=== PATIENT | female | born 1940 | race Caucasian/White ===

== ENCOUNTER → 2016-07-24 | Outpatient (CLI) | payer MEDICARE ==
[~2016-07-24] MED LIST: ALPR.25T PO; ALPR0.2550 PO; ASP325TEC PO; ASP81CT PO; ASP81TEC PO; ASPI1TAB PO; ATOR80TA PO; CIPR-226 PO; CLOP75TA PO; FENO135C PO; ISOS30TA3 PO; LACT1CAP57 PO; LIOT50TA3 PO; MAGN400C PO; MAGN400T6 PO; MTP25TSR PO; OMEG-9 PO; OMEG1CAP51 PO; ONDA8TAB9 PO; PNT40TEC PO; POTA10CA43 PO; POTA20TA15 PO; PRD20T PO; RNT150T PO; SMV20T PO; TRAM50TA2 PO; TRIA1TAB3 PO; TRIA1TAB5 PO; Ticagrelor PO
[2016-07-24 09:19] LABS: ALANINE AMINOTRANSFERASE 25 U/L (0-55); ALBUMIN 4.2 G/DL (3.2-4.5); ANION GAP 12 MMOL/L (5-14); ASPARTATE AMINO TRANSFERASE 25 U/L (5-34); BILIRUBIN,TOTAL 1.4 MG/DL (0.1-1.0); BLOOD UREA NITROGEN 17 MG/DL (7-18); BUN/CREATININE RATIO 20; CALCIUM 9.1 MG/DL (8.5-10.1); CARBON DIOXIDE 25 MMOL/L (21-32); CHLORIDE 105 MMOL/L (98-107); CHOLESTEROL 141 MG/DL (< 200); CREATININE SERUM 0.83 MG/DL (0.60-1.30); DIRECT LDL 72 MG/DL (1-129); GFR ESTIMATED > 60; GLUCOSE 123 MG/DL (70-105); POTASSIUM 3.9 MMOL/L (3.6-5.0); SODIUM 142 MMOL/L (135-145); TOTAL PROTEIN 6.6 G/DL (6.4-8.2); TRIGLYCERIDES 117 MG/DL (<150); VLDL CHOLESTEROL 23 MG/DL (5-40)
== END ==
LOC: LAB 08:40
PROVIDERS: ATTEND Physician Assistant
DX: I25.10 Atherosclerotic heart disease of native coronary artery without angina pectoris (principal); I10 Essential (primary) hypertension; E78.2 Mixed hyperlipidemia
CPT/HCPCS: 36415; 80053; 80061

== ENCOUNTER → 2016-08-01 | Outpatient (CLI) | payer MEDICARE, OTHER ==
[~2016-08-01] VITALS: Ht 165.1 cm; Wt 72.1 kg
[~2016-08-01] MED LIST changes: +REGADENOSON 0.4 MG/5 ML SYR (LEXISCAN) IV ONE
[2016-08-01] MEDS: CATHETER FLUSH 10 ML SYR IV PRN ×2 (11:38→12:56)
[2016-08-01 12:54] VITALS: BP 140/70
--- NOTE | 2016-08-02 08:08 | ECHOCARDIOGRAPHY REPORT ---
PROCEDURE PHYSICIAN: AR MAGALLANES DATE OF PROCEDURE: 08/01/2016 TWO DIMENSIONAL ECHOCARDIOGRAM REPORT PRIMARY PHYSICIAN: OTHER PHYSICIAN: REFERRING PHYSICIAN: Dr. Mancini ORDERING PHYSICIAN: INDICATION FOR THE PROCEDURE: 1. Chest pain. 2. Coronary artery disease. MEASUREMENTS DERIVED VALUES LV DIAMETER (LAX) NORMALS NORMALS Diastolic 4.8 (3.6-5.2) Eject. Fract. 60% (60%+/-6%) Systolic (2.3-3.9) Diastolic Vol. % Shortening (0.22-0.42) Systolic Vol. Aortic Root IVS THICKNESS Diastolic 1.1 (0.6-1.1) LVPW THICKNESS Diastolic 1.1 (0.6-1.1) LA DIAMETER Systolic 3.4 (2.1-3.7) FINDINGS: 1. Technical quality is good. 2. The left ventricle is normal in size with normal contractility. Systolic function appeared to be normal. Estimated ejection fraction 60%. 3. Left atrium is normal in size. No clot or thrombus were seen within the left atrium. 4. The right atrium and right ventricle are normal in size. No clot or thrombus were seen within the right side. 5. Mitral valve is normal in morphology with mild mitral regurgitation noted by color Doppler flow. No mitral valve prolapse. No mitral valve stenosis. 6. Aortic valve is trileaflet with normal opening and closing pattern. No significant aortic stenosis or regurgitation was seen. 7. Tricuspid valve is normal in morphology with mild tricuspid regurgitation noted by color Doppler flow. Doppler across tricuspid valve estimated pulmonary artery pressure of 29+ right atrial pressure. 8. Pulmonic valve is functioning normally. 9. No pericardial effusion. IN CONCLUSION: 1. Normal left ventricular size and systolic function. Estimated ejection fraction is 60%. 2. Mild mitral and tricuspid regurgitation. 3. Estimated pulmonary artery pressure of 35 mmHg. Job ID: [id number] Dictated Date: 08/01/2016 16:53:36 Lifeguard Date: 08/02/2016 08:05:01 / [place]
--- NOTE | 2016-08-02 10:07 | STRESS TEST ---
PROCEDURE PHYSICIAN: AR MAGALLANES DATE OF PROCEDURE: 08/01/2016 LEXISCAN MYOVIEW STRESS TEST REPORT: REFERRING PHYSICIAN: Dr. Mancini. INDICATION FOR THE PROCEDURE: 1. Chest pain. 2. Coronary artery disease. BASELINE HEART RATE: 68 BASELINE BLOOD PRESSURE: 176/88 BASELINE EKG: Sinus rhythm with no ischemic changes. IN SUMMARY: The patient was injected with 10.53 mCi of technetium 99 Myoview and the resting images were obtained. Then the patient received 0.4 mg of Lexiscan followed by 29.3 mCi of technetium 99 Myoview. Throughout the test, there were no EKG changes. The resting and stress images were reviewed and compared in the short axis, horizontal long axis, and vertical long axis views. Review of the images showed breast attenuation with typical female pattern. No significant ischemia or infarction were seen. SSS is 4, SDS 3, TID value 1.01. On the gated images, the left ventricle appeared to be normal size with normal contractility. Calculated ejection fraction 84%. IN CONCLUSION: 1. The patient tolerated Lexiscan well. 2. No ischemia or infarction on SPECT images. 3. Normal left ventricular size with normal contractility. Calculated ejection fraction 84%. Job ID: [id number] Dictated Date: 08/02/2016 07:13:10 Auditing Control Clerk Date: 08/02/2016 10:03:33 / [place]
== END ==
LOC: CARD 09:20
PROVIDERS: ATTEND Internal Medicine Cardiovascular Disease
DX: I25.10 Atherosclerotic heart disease of native coronary artery without angina pectoris (principal); R07.9 Chest pain, unspecified; I10 Essential (primary) hypertension; E78.2 Mixed hyperlipidemia; R55 Syncope and collapse; R09.89 Other specified symptoms and signs involving the circulatory and respiratory systems
CPT/HCPCS: 78452; 93017; 93306

== ENCOUNTER 2016-12-02 08:54 | Emergency (ER) | payer MEDICARE, OTHER ==
[~2016-12-02] VITALS: Ht 162.6 cm; Wt 63.5 kg
[~2016-12-02 08:54] MED LIST changes: -REGADENOSON 0.4 MG/5 ML SYR (LEXISCAN) IV ONE
[2016-12-02] MEDS ORDERED: DOXYCYCLINE 100 MG (VIBRAMYCIN) TABLET PO STA (09:14)
[2016-12-02] MEDS ORDERED: cefTRIAXone INJECTION 1,000 MG in NS (IVPB) 50 ML IV ONE (09:15)
[2016-12-02] MEDS ORDERED: LIDOCAINE 1% INJ 20 ML (XYLOCAINE) VIAL ONE (09:16)
--- NOTE | 2016-12-02 09:25 | ED General ---
General Chief Complaint: Head/Cervical Problems Stated Complaint: R SIDE NECK PAIN Nursing Triage Note: c/o possible insect bite to right clavicle. Also c/o redness to left foot. Scaling of left foot. Hx of suspected recurrent fungal infection to left foot. Nursing Sepsis Screen: No Definite Risk Source of Information: Patient Exam Limitations: No Limitations History of Present Illness Time Seen by Provider: 09:02 Initial Comments Here with report of pain to the area of the left shoulder between the shoulder and neck. She has a possible insect bite or sting at that area. She has tenderness when lifting up her shoulder to the area. Also notes that she has redness to the left foot that extends to the level just above the ankle. Denies fever or chills. Denies any inciting event to the area of the foot and states that it just was red and swollen. Timing/Duration: 12-24 Hours Severity: Moderate Associated Systoms: No Cough, No Fever/Chills, No Nausea/Vomiting, No Rash, No Shortness of Air, No Weakness Allergies and Home Medications Allergies Coded Allergies: Penicillins (Unverified Allergy, Unknown, 02/22/10) erythromycin base (Unverified Allergy, Unknown, 02/22/10) Home Medications Aspirin 81 Mg Tabec, 81 MG PO DAILY, (Reported) Atorvastatin Calcium 80 Mg Tablet, 80 MG PO HS, (Reported) Doxycycline Hyclate 100 Mg Tablet, 100 MG PO BID, #20 Ref 0 Prescribed by: STERLING MEJIAS on 12/02/16 0928 Isosorbide Mononitrate 30 Mg Tab.sr.24h, 30 MG PO DAILY, (Reported) Magnesium Oxide 400 Mg Capsule, 400 MG PO AM & NOON, (Reported) Metoprolol Succinate 25 Mg Tab.sr.24h, 25 MG PO DAILY, (Reported) Charlo-3 Fatty Acids/Fish Oil 1 Each Capsule, 1,000 MG PO TID, (Reported) Pantoprazole Sod 40 Mg Tab, 40 MG PO DAILY, (Reported) Prednisone 20 Mg Tab, 40 MG PO DAILY, #12 Prescribed by: STERLING MEJIAS on 04/20/16 1148 Tramadol HCl 50 Mg Tablet, 50 MG PO Q6H PRN for PAIN, #20 Prescribed by: STERLING MEJIAS on 04/20/16 1148 Constitutional: see HPI, No chills, No fever Respiratory: no symptoms reported Cardiovascular: no symptoms reported Gastrointestinal: no symptoms reported, No nausea, No vomiting Genitourinary: no symptoms reported Musculoskeletal: see HPI, No joint pain, muscle pain Skin: see HPI, change in color, lesions Psychiatric/Neurological: No Symptoms Reported Past [id number] Hx Patient Social History Alcohol Use: Denies Use Recreational Drug Use: No Recent Foreign Travel: No Contact w/Someone Who Travel: No Recent Infectious Disease Expo: No Recent Hopitalizations: No Immunizations Up To Date Tetanus Booster (TDap): More than 5yrs Surgeries HX Surgeries: Yes (HEART CATH) Surgeries: Eye Surgery Respiratory Hx Respiratory Disorders: No Cardiovascular Hx Cardiac Disorders: Yes (STENT) Cardiac Disorders: Heart Attack, Hypertension Neurological Hx Neurological Disorders: No Reproductive System Hx Reproductive Disorders: No Genitourinary Hx Genitourinary Disorders: No Gastrointestinal Hx Gastrointestinal Disorders: No Musculoskeletal Hx Musculoskeletal Disorders: No Endocrine Hx Endocrine Disorders: No HEENT HX ENT Disorders: Yes HEENT Disorders: Cataract Loss of Vision: Denies Cancer Hx Cancer: No Psychosocial Hx Psychiatric Problems: Yes Behavioral Health Disorders: Anxiety Integumentary HX Skin/Integumentary Disorder: No Blood Transfusions Hx Blood Disorders: No Reviewed Nursing Assessment Reviewed/Agree w Nursing PMH: Yes Family Medical History Significant Family History: Heart Disease Family Medial History: AIDS Arthritis 19 MOTHER, Onset:50's - 60 Deafness or hearing loss 19 FATHER, Onset:60 years & older 19 MOTHER, Onset:60 years & older Myocardial infarction 19 FATHER, Onset:60 years & older Visual disorder 19 FATHER, Onset:50's - 60 19 MOTHER, Onset:50's - 60 No Family History of: Abdominal aortic aneurysm Frank's disease Alcoholism Alzheimer's disease Aphasia Asthma Cancer of mouth Cardiovascular disease Cataracts Colon cancer Completed stroke Congenital disease Congenital heart disease Coronary thrombosis Cystic fibrosis Dementia Diabetes mellitus Drug abuse Dysphasia Fibrocystic disease of breast Gastroenteritis Glaucoma Headache disorder Hypercholesterolemia Hypertension Infertility Kidney disease Neoplasm Osteoporosis Parkinson's disease Prostate cancer Psychosocial problem Respiratory disorder Seizure disorder Severe allergy Thyroid disease Tuberculosis Physical Exam Vital Signs Vital Sign - Last 12Hours 12/02/16 09:08 Temp 98.5 Pulse 82 Resp 16 B/P (MAP) 136/70 Pulse Ox 98 Capillary Refill : Less Than 3 Seconds General Appearance: No Apparent Distress, WD/WN HEENT: PERRL/EOMI, Pharynx Normal Neck: Non Tender, Supple Respiratory: Lungs Clear, Normal Breath Sounds Cardiovascular: Regular Rate, Rhythm, No Murmur Gastrointestinal: Non Tender, Soft Back: Normal Inspection, No CVA Tenderness, No Vertebral Tenderness Extremity: Normal Range of Motion, No Calf Tenderness Neurologic/Psychiatric: Alert, Oriented x3 Skin: Warm/Dry, Other (right shoulder area with 3 x 3 cm area of redness and induration with a central core with she has the appearance of an early blister/ ulceration. Left foot with redness from toes to area above ankle. No obvious wounds but does have athlete's foot.) Progress/Results/Core Measures Results/Orders My Orders Orders - STERLING MEJIAS MD Ceftriaxone Injection (Rocephin Injectio (12/02/16 09:15) Doxycycline Hyclate Tablet (Vibramycin T (12/02/16 09:14) Lidocaine 1% Injection (Xylocaine 1% Inj (12/02/16 09:16) Ceftriaxone Injection (Rocephin Injectio (12/02/16 09:30) Lidocaine 1% Injection (Xylocaine 1% Inj (12/02/16 09:30) Medications Given in ED Current Medications Medications Dose Ordered Sig/Artur Route Start Time Stop Time Status Last Admin Dose Admin Ceftriaxone Sodium 1,000 mg ONCE ONCE IM 12/02/16 09:30 12/02/16 09:31 DC 12/02/16 09:32 1,000 MG Lidocaine HCl 20 ml STK-MED ONCE .ROUTE 12/02/16 09:16 12/02/16 09:22 DC 12/02/16 09:29 20 ML Vital Signs/I&O Vital Sign - Last 12Hours 12/02/16 12/02/16 12/02/16 12/02/16 09:08 09:32 09:32 09:45 Temp 98.5 98.5 98.5 96.4 Pulse 82 Resp 16 B/P (MAP) 136/70 Pulse Ox 98 Blood Pressure Mean: 92 Progress Note : Progress Note Seen and evaluated. Cellulitis left foot noted and probable spider bite to the right shoulder. Due to cellulitis that is moderate to the left foot, Rocephin 1 g IM initiated and we will continue doxycycline outpatient. First dose of that here as well. Findings and concerns discussed with the patient who verbalize understanding Patient does have athlete's foot infection to the left foot. I did discuss with her [id number] options for treatment. Discharged home with return precautions. Patient verbalize understanding instructions and agreement with plan. No adverse reactions to medicines given. Departure Impression Impression: Primary Impression: Cellulitis of left foot Additional Impression: Spider bite wound Qualified Codes: T63.304A - Toxic effect of unspecified spider venom, undetermined, initial encounter Disposition: 01 HOME, SELF-CARE Condition: Improved Departure-Patient Inst. Decision time for Depature: 09:25 Referrals: JENNIFER RUIZ MD (PCP/Family) Primary Care Physician Patient Instructions: Cellulitis (Skin Infection), Adult (DC), Spider Bites Add. Discharge Instructions: All discharge instructions reviewed with patient and/or family. Voiced understanding. Take medications as directed. You may use [id number] cream for the athlete's foot infection to the left foot. Apply per package directions. You may take Tylenol or ibuprofen as needed for fever or pain per package directions. Return for worse pain, fever, vomiting, increasing redness to the area around wounds or other concerns as needed. Scripts Doxycycline Hyclate (Doxycycline Hyclate) 100 Mg Tablet 100 MG PO BID, #20 TAB 0 Refills Prov: STERLING MEJIAS MD 12/02/16 STERLING MEJIAS MD Dec 02, 2016 09:25
[2016-12-02] MEDS ORDERED: DOXY100T2 PO (09:28)
[2016-12-02] MEDS ORDERED: LIDOCAINE 1% INJ 20 ML (XYLOCAINE) VIAL INJ ONE (09:30)
[2016-12-02] MEDS ORDERED: cefTRIAXone 1 GM (ROCEPHIN) VIAL IM ONE (09:30)
[2016-12-02 10:20] VITALS: BP 132/70
--- OUTSIDE RECORDS SUMMARY | 2016-12-04 11:06 | XMS REPORT | Continuity of Care Document ---
Author Author [facility] Organization [facility] Address Unknown Phone Unavailable Allergies Active Description Code Type Severity Reaction Onset Reported/Identified Relationship to Patient Clinical Status Yes erythromycin base [id number] Drug Allergy Unknown N/A 02/22/2010 Yes Penicillins [id number] Drug Allergy Unknown N/A 02/22/2010 Medications Problems Date Dx Coded Attending Type Code Diagnosis Diagnosed By 02/23/2010 Ot 272.4 02/23/2010 Ot 401.9 02/23/2010 Ot 414.01 02/23/2010 Ot V17.49 03/25/2010 Ot 272.4 03/25/2010 Ot 276.8 03/25/2010 Ot 401.9 03/25/2010 Ot 414.01 03/25/2010 Ot 791.9 03/25/2010 Ot V45.82 03/25/2010 Ot V58.63 03/25/2010 Ot V58.66 03/25/2010 Ot V58.69 02/06/2011 Ot 272.4 HYPERLIPIDEMIA NEC/NOS 02/06/2011 Ot 275.2 DIS MAGNESIUM METABOLISM 02/06/2011 Ot 276.8 HYPOPOTASSEMIA 02/06/2011 Ot 401.9 HYPERTENSION NOS 02/06/2011 Ot 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 [place] CORON 02/06/2011 Ot 530.81 ESOPHAGEAL REFLUX 02/06/2011 Ot 786.50 CHEST PAIN NOS 02/06/2011 Ot V45.82 PERCUTANEOUS TRANSLUM CORON ANGIOPLASTY 02/06/2011 Ot V58.63 LONG-TERM(CURRENT)USE OF ANTIPLATELET/AN 02/06/2011 Ot V58.66 LONG-TERM (CURRENT) USE OF ASPIRIN 02/06/2011 Ot V58.69 OTH MED,LT,CURRENT USE 04/14/2012 Ot 272.4 HYPERLIPIDEMIA NEC/NOS 04/14/2012 Ot 276.52 HYPOVOLEMIA 04/14/2012 Ot 300.00 ANXIETY STATE NOS 04/14/2012 Ot 397.0 TRICUSPID VALVE DISEASE 04/14/2012 Ot 401.9 HYPERTENSION NOS 04/14/2012 Ot 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 [place] CORON 04/14/2012 Ot 424.0 MITRAL VALVE DISORDER 04/14/2012 Ot 530.81 ESOPHAGEAL REFLUX 04/14/2012 Ot 780.2 SYNCOPE AND COLLAPSE 04/14/2012 Ot 786.50 CHEST PAIN NOS 04/14/2012 Ot V45.82 PERCUTANEOUS TRANSLUM CORON ANGIOPLASTY 04/14/2012 Ot V58.63 LONG-TERM(CURRENT)USE OF ANTIPLATELET/AN 04/14/2012 Ot V58.66 LONG-TERM (CURRENT) USE OF ASPIRIN 04/14/2012 Ot V58.69 OTH MED,LT,CURRENT USE 02/04/2013 AR MAGALLANES MD Ot 272.4 HYPERLIPIDEMIA NEC/NOS 02/04/2013 AR MAGALLANES MD Ot 300.00 ANXIETY STATE NOS 02/04/2013 AR MAGALLANES MD Ot 401.9 HYPERTENSION NOS 02/04/2013 AR MAGALLANES MD Ot 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 [place] CORON 02/04/2013 AR MAGALLANES MD Ot 530.81 ESOPHAGEAL REFLUX 02/04/2013 AR MAGALLANES MD Ot 780.2 SYNCOPE AND COLLAPSE 02/04/2013 AR MAGALLANES MD Ot 780.4 DIZZINESS AND GIDDINESS 02/04/2013 AR MAGALLANES MD Ot 780.79 OTH MALAISE FATIGUE 02/04/2013 AR MAGALLANES MD Ot 786.59 CHEST PAIN NEC 02/04/2013 AR MAGALLANES MD Ot 787.02 NAUSEA ALONE 02/04/2013 AR MAGALLANES MD Ot V17.49 FAMILY HISTORY OF OTHER CARDIOVASCULAR D 02/04/2013 AR MAGALLANES MD Ot V45.82 PERCUTANEOUS TRANSLUM CORON ANGIOPLASTY 08/24/2014 Ot 272.4 10/28/2014 AR MAGALLANES MD Ot 272.4 10/28/2014 AR MAGALLANES MD Ot 276.8 10/28/2014 AR MAGALLANES MD Ot 300.00 10/28/2014 AR MAGALLANES MD Ot 305.1 10/28/2014 AR MAGALLANES MD Ot 401.9 10/28/2014 AR MAGALLANES MD Ot 414.01 10/28/2014 AR MAGALLANES MD Ot 433.10 10/28/2014 AR MAGALLANES MD Ot 433.30 10/28/2014 AR MAGALLANES MD Ot 458.29 10/28/2014 AR MAGALLANES MD Ot 530.81 10/28/2014 AR MAGALLANES MD Ot V45.82 11/01/2014 AR MAGALLANES MD Ot 272.4 HYPERLIPIDEMIA NEC/NOS 11/01/2014 AR MAGALLANES MD Ot 276.8 HYPOPOTASSEMIA 11/01/2014 AR MAGALLANES MD Ot 300.00 ANXIETY STATE NOS 11/01/2014 AR MAGALLANES MD Ot 305.1 TOBACCO USE DISORDER 11/01/2014 AR MAGALLANES MD Ot 401.9 HYPERTENSION NOS 11/01/2014 AR MAGALLANES MD Ot 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 [place] CORON 11/01/2014 AR MAGALLANES MD Ot 414.12 DISSECTION OF CORONARY ARTERY 11/01/2014 AR MAGALLANES MD Ot 433.10 CAROTID ARTERY OCCLUSION W O CEREBRAL IN 11/01/2014 AR MAGALLANES MD Ot 433.30 MULT BILTRAL ARTERY OCCLUSION WO CEREBRA 11/01/2014 AR MAGALLANES MD Ot 458.29 OTHER IATROGENIC HYPOTENSION 11/01/2014 AR MAGALLANES MD Ot 530.81 ESOPHAGEAL REFLUX 11/01/2014 AR MAGALLANES MD Ot 997.1 SURG COMPL-HEART 11/01/2014 AR MAGALLANES MD Ot V45.82 PERCUTANEOUS TRANSLUM CORON ANGIOPLASTY 11/03/2014 AR MAGALLANES MD Ot 272.4 11/03/2014 AR MAGALLANES MD Ot 276.8 11/03/2014 AR MAGALLANES MD Ot 300.00 11/03/2014 AR MAGALLANES MD Ot 305.1 11/03/2014 AR MAGALLANES MD Ot 401.9 11/03/2014 AR MAGALLANES MD Ot 414.01 11/03/2014 AR MAGALLANES MD Ot 433.10 11/03/2014 AR MAGALLANES MD Ot 433.30 11/03/2014 AR MAGALLANES MD Ot 458.29 11/03/2014 AR MAGALLANES MD Ot 530.81 11/03/2014 AR MAGALLANES MD Ot V45.82 11/03/2014 SONA FOLEY, AR Nichols Ot 272.4 11/03/2014 SONA FOLEY, AR Nichols Ot 276.8 11/03/2014 SONA FOLEY, AR Nichols Ot 300.00 11/03/2014 SONA FOLEY, AR Nichols Ot 305.1 11/03/2014 SONA FOLEY, AR Nichols Ot 401.9 11/03/2014 SONA FOLEY, AR Nichols Ot 414.01 11/03/2014 SONA FOLEY, AR Nichols Ot 433.10 11/03/2014 SONA FOLEY, AR Nichols Ot 433.30 11/03/2014 SONA FOLEY, AR Nichols Ot 458.29 11/03/2014 SONA FOLEY, AR Nichols Ot 530.81 11/03/2014 SONA FOLEY, AR Nichols Ot V45.82 02/04/2015 Ot 272.1 02/04/2015 Ot 790.29 02/04/2015 Ot 282.7 02/04/2015 Ot 285.9 02/04/2015 Ot 272.4 02/04/2015 Ot 272.4 02/04/2015 Ot 272.4 02/04/2015 Ot 414.00 02/04/2015 Ot 414.00 02/04/2015 Ot 272.4 02/04/2015 Ot 401.9 02/04/2015 Ot 786.50 02/04/2015 Ot 272.4 02/04/2015 Ot 401.9 02/04/2015 SONA FOLEY, AR Nichols Ot 272.4 02/04/2015 SONA FOLEY, AR Nichols Ot 401.9 02/04/2015 RACHEL CMNAMARA Ot 272.4 02/04/2015 RACHEL MCNAMARA Ot 414.00 02/04/2015 SONA FOLEY, AR Nichols Ot 272.4 02/04/2015 SONA FOLEY, AR Nichols Ot 300.00 02/04/2015 SONA FOLEY, AR Nichols Ot 401.9 02/04/2015 SONA FOLEY, AR Nichols Ot 414.00 02/04/2015 SONA FOLEY, AR Nichols Ot 530.81 02/04/2015 SONA FOLEY, AR Nichols Ot 780.2 02/04/2015 AR MAGALLANES MD Ot 785.9 02/04/2015 Ot 272.4 03/28/2015 Ot 272.1 03/28/2015 Ot 790.29 03/28/2015 Ot 282.7 03/28/2015 Ot 285.9 03/28/2015 Ot 272.4 03/28/2015 Ot 272.4 03/28/2015 Ot 272.4 03/28/2015 Ot 414.00 03/28/2015 Ot 414.00 03/28/2015 Ot 272.4 03/28/2015 Ot 401.9 03/28/2015 Ot 786.50 03/28/2015 Ot 272.4 03/28/2015 Ot 401.9 03/28/2015 SONA FOLEY, AR Nichols Ot 272.4 03/28/2015 SONA FOLEY, AR Nichols Ot 401.9 03/28/2015 RACHEL MCNAMARA Ot 272.4 03/28/2015 RACHEL MCNAMARA INSTRUCTION DEAN Ot 414.00 03/28/2015 AR MAGALLANES MD Ot 272.4 03/28/2015 AR MAGALLANES MD Ot 300.00 03/28/2015 AR MAGALLANES MD Ot 401.9 03/28/2015 SONA FOLEY, AR Nichols Ot 414.00 03/28/2015 SONA FOLEY, AR Nichols Ot 530.81 03/28/2015 SONA FOLEY, AR Nichols Ot 780.2 03/28/2015 AR MAGALLANES MD Ot 785.9 03/28/2015 Ot 272.4 07/29/2015 LARRY LEÓN APRN Ot E86.9 VOLUME DEPLETION, UNSPECIFIED 07/29/2015 LARRY LEÓN [employer] Ot E87.6 HYPOKALEMIA 07/29/2015 LARRY LEÓN [employer] Ot K52.9 NONINFECTIVE GASTROENTERITIS AND COLITIS 07/29/2015 LARRY LEÓN [employer] Ot N39.0 URINARY TRACT INFECTION, SITE NOT SPECIF 08/16/2015 QUIRINO LAWRENCE Ot E78.5 04/16/2016 Ot 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 04/16/2016 Ot 790.29 OTHER ABNORMAL GLUCOSE 04/16/2016 Ot 272.4 HYPERLIPIDEMIA NEC/NOS 04/16/2016 Ot 272.4 HYPERLIPIDEMIA NEC/NOS 04/16/2016 Ot 414.00 CORON ATHEROSCLER NOS TYPE VESSEL, NATIV 04/16/2016 Ot 414.00 CORON ATHEROSCLER NOS TYPE VESSEL, NATIV 04/16/2016 Ot 272.4 HYPERLIPIDEMIA NEC/NOS 04/16/2016 Ot 401.9 HYPERTENSION NOS 04/16/2016 Ot 786.50 CHEST PAIN NOS 04/16/2016 Ot 272.4 HYPERLIPIDEMIA NEC/NOS 04/16/2016 Ot 401.9 HYPERTENSION NOS 04/16/2016 SONA FOLEY, AR Nichols Ot 272.4 HYPERLIPIDEMIA NEC/NOS 04/16/2016 AR MAGALLANES MD Ot 401.9 HYPERTENSION NOS 04/16/2016 MCNAMARARACHEL SMALL INSTRUCTION DEAN Ot 272.4 HYPERLIPIDEMIA NEC/NOS 04/16/2016 MCNAMARARACHEL INSTRUCTION DEAN Ot 414.00 CORON ATHEROSCLER NOS TYPE VESSEL, NATIV 04/16/2016 SONA FOLEY, AR Nichols Ot 272.4 HYPERLIPIDEMIA NEC/NOS 04/16/2016 AR MAGALLANES MD Ot 300.00 ANXIETY STATE NOS 04/16/2016 AR MAGALLANES MD Ot 401.9 HYPERTENSION NOS 04/16/2016 SONA FOLEY, AR Nichols Ot 414.00 CORON ATHEROSCLER NOS TYPE VESSEL, NATIV 04/16/2016 SONA FOLEY, AR Nichols Ot 530.81 ESOPHAGEAL REFLUX 04/16/2016 SONA FOLEY, AR Nichols Ot 780.2 SYNCOPE AND COLLAPSE 04/16/2016 SONA FOLEY, AR Nichols Ot 785.9 CARDIOVAS SYS SYMP NEC 04/16/2016 Ot 272.4 HYPERLIPIDEMIA NEC/NOS 04/16/2016 QUIRINO LAWRENCE Ot E78.5 HYPERLIPIDEMIA, UNSPECIFIED 04/17/2016 LUCIUS FAROOQ APRN Ot M54.5 LOW BACK PAIN 04/20/2016 Ot 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 04/20/2016 Ot 790.29 OTHER ABNORMAL GLUCOSE 04/20/2016 Ot 272.4 HYPERLIPIDEMIA NEC/NOS 04/20/2016 Ot 272.4 HYPERLIPIDEMIA NEC/NOS 04/20/2016 Ot 414.00 CORON ATHEROSCLER NOS TYPE VESSEL, NATIV 04/20/2016 Ot 414.00 CORON ATHEROSCLER NOS TYPE VESSEL, NATIV 04/20/2016 Ot 272.4 HYPERLIPIDEMIA NEC/NOS 04/20/2016 Ot 401.9 HYPERTENSION NOS 04/20/2016 Ot 786.50 CHEST PAIN NOS 04/20/2016 Ot 272.4 HYPERLIPIDEMIA NEC/NOS 04/20/2016 Ot 401.9 HYPERTENSION NOS 04/20/2016 AR MAGALLANES MD Ot 272.4 HYPERLIPIDEMIA NEC/NOS 04/20/2016 AR MAGALLANES MD Ot 401.9 HYPERTENSION NOS 04/20/2016 MCNAMARARACHEL SMALL INSTRUCTION DEAN Ot 272.4 HYPERLIPIDEMIA NEC/NOS 04/20/2016 MCNAMARARACHEL SMALL INSTRUCTION DEAN Ot 414.00 CORON ATHEROSCLER NOS TYPE VESSEL, NATIV 04/20/2016 AR MAGALLANES MD Ot 272.4 HYPERLIPIDEMIA NEC/NOS 04/20/2016 AR MAGALLANES MD Ot 300.00 ANXIETY STATE NOS 04/20/2016 AR MAGALLANES MD J Ot 401.9 HYPERTENSION NOS 04/20/2016 AR MAGALLANES MD Ot 414.00 CORON ATHEROSCLER NOS TYPE VESSEL, NATIV 04/20/2016 AR MAGALLANES MD Ot 530.81 ESOPHAGEAL REFLUX 04/20/2016 AR MAGALLANES MD Ot 780.2 SYNCOPE AND COLLAPSE 04/20/2016 AR MAGALLANES MD Ot 785.9 CARDIOVAS SYS SYMP NEC 04/20/2016 Ot 272.4 HYPERLIPIDEMIA NEC/NOS 04/20/2016 QUIRINO LAWRENCE Ot E78.5 HYPERLIPIDEMIA, UNSPECIFIED 04/20/2016 LUCIUS FAROOQ APRN Ot M54.5 LOW BACK PAIN 04/20/2016 STERLING MEJIAS MD Ot I10 ESSENTIAL (PRIMARY) HYPERTENSION 04/20/2016 STERLING MEJIAS MD Ot M47.26 OTHER SPONDYLOSIS WITH RADICULOPATHY, REINALDO 04/20/2016 STERLING MEJIAS MD Ot M54.5 LOW BACK PAIN 04/20/2016 STERLING MEJIAS MD Ot Z79.82 SNF (CURRENT) USE OF ASPIRIN 04/20/2016 STERLING MEJIAS MD Ot Z79.899 OTHER SNF (CURRENT) DRUG THERAPY 04/23/2016 STERLING MEJIAS MD Ot I10 ESSENTIAL (PRIMARY) HYPERTENSION 04/23/2016 STERLING MEJIAS MD Ot M47.26 OTHER SPONDYLOSIS WITH RADICULOPATHY, REINALDO 04/23/2016 STERLING MEJIAS MD Ot M54.5 LOW BACK PAIN 04/23/2016 STERLING MEJIAS MD Ot Z79.82 CONTINUOUS IMPROVEMENT INTERN (CURRENT) USE OF ASPIRIN 04/23/2016 STERLING MEJIAS MD, Ot Z79.899 OTHER CONTINUOUS IMPROVEMENT INTERN (CURRENT) DRUG THERAPY 04/26/2016 STERLING MEJIAS MD, Ot I10 ESSENTIAL (PRIMARY) HYPERTENSION 04/26/2016 STERLING MEJIAS MD Ot M47.26 OTHER SPONDYLOSIS WITH RADICULOPATHY, REINALDO 04/26/2016 STERLING MEJIAS MD, Ot M54.5 LOW BACK PAIN 04/26/2016 STERLING MEJIAS MD, Ot Z79.82 SNF (CURRENT) USE OF ASPIRIN 04/26/2016 STERLING MEJIAS MD, Ot Z79.899 OTHER CONTINUOUS IMPROVEMENT INTERN (CURRENT) DRUG THERAPY 05/09/2016 LUCIUS FAROOQ APRN Ot M54.5 LOW BACK PAIN 07/25/2016 QUIRINO LAWRENCE Ot E78.2 MIXED HYPERLIPIDEMIA 07/25/2016 QUIRINO LAWRENCE Ot I10 ESSENTIAL (PRIMARY) HYPERTENSION 07/25/2016 QUIRINO LAWRENCE Ot I25.10 ATHSCL HEART DISEASE OF [place] CORONARY 07/25/2016 QUIRINO LAWRENCE Ot E78.2 MIXED HYPERLIPIDEMIA 07/25/2016 QUIRINO LAWRENCE Ot I10 ESSENTIAL (PRIMARY) HYPERTENSION 07/25/2016 QUIRINO LAWRENCE Ot I25.10 ATHSCL HEART DISEASE OF [place] CORONARY 08/01/2016 AR MAGALLANES MD Ot I25.10 ATHSCL HEART DISEASE OF [place] CORONARY 08/01/2016 AR MAGALLANES MD Ot I25.10 ATHSCL HEART DISEASE OF [place] CORONARY 08/02/2016 AR MAGALLANES MD Ot E78.2 MIXED HYPERLIPIDEMIA 08/02/2016 AR MAGALLANES MD Ot I10 ESSENTIAL (PRIMARY) HYPERTENSION 08/02/2016 AR MAGALLANES MD Ot I25.10 ATHSCL HEART DISEASE OF [place] CORONARY 08/02/2016 AR MAGALLANES MD Ot R07.9 CHEST PAIN, UNSPECIFIED 08/02/2016 AR MAGALLANES MD Ot R09.89 OTH SYMPTOMS AND SIGNS INVOLVING THE CIR 08/02/2016 AR MAGALLANES MD Ot R55 SYNCOPE AND COLLAPSE 08/03/2016 AR MAGALLANES MD Ot E78.2 MIXED HYPERLIPIDEMIA 08/03/2016 AR MAGALLANES MD Ot I10 ESSENTIAL (PRIMARY) HYPERTENSION 08/03/2016 AR MAGALLANES MD Ot I25.10 ATHSCL HEART DISEASE OF [place] CORONARY 08/03/2016 AR MAGALLANES MD Ot R07.9 CHEST PAIN, UNSPECIFIED 08/03/2016 AR MAGALLANES MD Ot R09.89 OTH SYMPTOMS AND SIGNS INVOLVING THE CIR 08/03/2016 AR MAGALLANES MD Ot R55 SYNCOPE AND COLLAPSE 08/03/2016 AR MAGALLANES MD Ot E78.2 MIXED HYPERLIPIDEMIA 08/03/2016 AR MAGALLANES MD Ot I10 ESSENTIAL (PRIMARY) HYPERTENSION 08/03/2016 AR MAGALLANES MD Ot I25.10 ATHSCL HEART DISEASE OF [place] CORONARY 08/03/2016 AR MAGALLANES MD Ot R07.9 CHEST PAIN, UNSPECIFIED 08/03/2016 RA MAGALLANES MD Ot R09.89 OTH SYMPTOMS AND SIGNS INVOLVING THE CIR 08/03/2016 AR MAGALLANES MD Ot R55 SYNCOPE AND COLLAPSE 08/14/2016 QUIRINO LAWRENCE Ot E78.2 MIXED HYPERLIPIDEMIA 08/14/2016 QUIRINO LAWRENCE Ot I10 ESSENTIAL (PRIMARY) HYPERTENSION 08/14/2016 QUIRINO LAWRENCE Ot I25.10 ATHSCL HEART DISEASE OF [place] CORONARY 08/22/2016 AR MAGALLANES MD Ot E78.2 MIXED HYPERLIPIDEMIA 08/22/2016 AR MAGALLANES MD Ot I10 ESSENTIAL (PRIMARY) HYPERTENSION 08/22/2016 AR MAGALLANES MD Ot I25.10 ATHSCL HEART DISEASE OF [place] CORONARY 08/22/2016 AR MAGALLANES MD Ot R07.9 CHEST PAIN, UNSPECIFIED 08/22/2016 AR MAGALLANES MD Ot R09.89 OTH SYMPTOMS AND SIGNS INVOLVING THE CIR 08/22/2016 AR MAGALLANES MD Ot R55 SYNCOPE AND COLLAPSE 09/06/2016 AR MAGALLANES MD Ot E78.2 MIXED HYPERLIPIDEMIA 09/06/2016 AR MAGALLANES MD Ot I10 ESSENTIAL (PRIMARY) HYPERTENSION 09/06/2016 AR MAGALLANES MD Ot I25.10 ATHSCL HEART DISEASE OF [place] CORONARY 09/06/2016 AR MAGALLANES MD Ot R07.9 CHEST PAIN, UNSPECIFIED 09/06/2016 AR MAGALLANES MD Ot R09.89 OTH SYMPTOMS AND SIGNS INVOLVING THE CIR 09/06/2016 AR MAGALLANES MD Ot R55 SYNCOPE AND COLLAPSE 09/18/2016 AR MAGALLANES MD Ot E78.2 MIXED HYPERLIPIDEMIA 09/18/2016 AR MAGALLANES MD Ot I10 ESSENTIAL (PRIMARY) HYPERTENSION 09/18/2016 AR MAGALLANES MD Ot I25.10 ATHSCL HEART DISEASE OF [place] CORONARY 09/18/2016 AR MAGALLANES MD Ot R07.9 CHEST PAIN, UNSPECIFIED 09/18/2016 AR MAGALLANES MD Ot R09.89 OTH SYMPTOMS AND SIGNS INVOLVING THE CIR 09/18/2016 AR MAGALLANES MD Ot R55 SYNCOPE AND COLLAPSE Procedures Code Description Performed By Performed On 00.40 PROCEDURE ON SINGLE VESSEL 10/29/2014 00.47 INSERTION OF THREE VASCULAR STENTS 10/29/2014 00.66 PERCUTANEOUS TRANSLUMINAL CORONARY ANGIO 10/29/2014 36.07 INSRT OF DRUG-ELUTING CORON ARTERY STENT 10/29/2014 37.22 LEFT HEART CARDIAC CATH 10/29/2014 88.53 LT HEART ANGIOCARDIOGRAM 10/29/2014 88.56 CORONAR ARTERIOGR-2 CATH 10/29/2014 Results Encounters ACCT No. Visit Date/Time Discharge Status Pt. Type Provider Facility Loc./Unit Complaint [id number] 04/20/2016 10:18:00 2015 12:09:00 DIS Emergency STERLING MEJIAS MD [facility] ER BACK PAIN [id number] 07/29/2015 12:09:00 2015 14:44:00 DIS Emergency LARRY LEÓN APRN [facility] ER VOMITING [id number] 10/29/2014 14:30:00 2014 09:57:00 DIS Inpatient AR MAGALLANES MD [facility] CSD CHEST PAIN [id number] 07/29/2013 09:13:00 2013 23:59:59 CLS Outpatient AR MAGALLANES MD [facility] LAB CAD,HYPERLIPIDEMIA,HTN,GERD,SYNCOPE [id number] 02/03/2013 14:07:00 2012 14:30:00 DIS Inpatient AR MAGALLANES MD [facility] CSD CHEST PAIN [id number] 01/28/2013 08:51:00 2012 23:59:59 CLS Outpatient RACHEL MCNAMARA [facility] LAB CAD,HLP [id number] 09/29/2012 08:51:00 2012 23:59:59 CLS Outpatient AR MAGALLANES MD [facility] LAB HYPERTENSION,HYPERLIPIDEMIA [id number] 08/01/2016 09:20:00 ACT Outpatient AR MAGALLANES MD [facility] CARD CAD,CHEST PAIN,HTN [id number] 07/24/2016 08:40:00 ACT Outpatient QUIRINO MYLES [facility] LAB CAD,HTN,HLP [id number] 04/16/2016 12:16:00 ACT Outpatient LUCIUS FAROOQ APRN [facility] RAD BACK PAIN [id number] 07/27/2015 08:48:00 ACT Outpatient QUIRINO MYLES [facility] LAB HLP [id number] 02/04/2015 09:26:00 Document Registration [id number] 02/04/2015 09:25:00 Document Registration [id number] 02/04/2015 09:25:00 Document Registration [id number] 02/04/2015 09:25:00 Document Registration [id number] 07/27/2014 09:20:00 Document Registration [id number] 04/21/2012 08:52:00 Document Registration [id number] 04/12/2012 16:14:00 Document Registration [id number] 02/13/2012 10:17:00 Document Registration [id number] 02/01/2012 12:18:00 Document Registration [id number] 12/03/2011 08:47:00 Document Registration [id number] 05/31/2011 08:39:00 Document Registration [id number] 03/13/2011 08:40:00 Document Registration [id number] 02/05/2011 15:30:00 Document Registration [id number] 02/22/2010 10:36:00 Document Registration [id number] 12/09/2009 09:58:00 Document Registration
== END 2016-12-02 10:20 | disposition home or self-care (01) ==
LOC: EDUNIT# 08:54 → ER 08:55
DX: F41.9 Anxiety disorder, unspecified; L03.116 Cellulitis of left lower limb; W57.XXXA Bitten or stung by nonvenomous insect and other nonvenomous arthropods, initial encounter; S40.261A Insect bite (nonvenomous) of right shoulder, initial encounter; S90.862A Insect bite (nonvenomous), left foot, initial encounter; I25.2 Old myocardial infarction; Z95.5 Presence of coronary angioplasty implant and graft; I10 Essential (primary) hypertension; Z79.82 Long term (current) use of aspirin
CPT/HCPCS: 96372; 99284

== ENCOUNTER → 2016-12-05 | Outpatient (CLI) | payer MEDICARE, OTHER ==
[~2016-12-05] MED LIST changes: +DOXY100T2 PO
--- NOTE | 2016-12-05 12:42 | Diagnostic Imaging Report ---
EXAMINATION: Left lower extremity duplex venous ultrasound. TECHNIQUE: DVT protocol. Multiple sonographic images with color Doppler and waveform interrogation were performed of the left lower extremity veins with compression and augmentation maneuvers. INDICATION: Left leg swelling. FINDINGS: The left lower extremity veins from the groin to below the knee veins were examined with normal color-flow, compressibility and waveform demonstrated. The great saphenous vein is patent. IMPRESSION: No evidence of DVT in the left lower extremity. Dictated by: Dictated on workstation # [id number]
== END ==
LOC: RAD 11:52
PROVIDERS: ATTEND Family Medicine
DX: R22.42 Localized swelling, mass and lump, left lower limb (principal)

== ENCOUNTER 2017-07-17 15:11 | Emergency (ER) | payer MEDICARE ==
[~2017-07-17] VITALS: Ht 162.6 cm; Wt 63.5 kg
[2017-07-17] MEDS ORDERED: HYDROmorphone (DILAUDID) 2 MG/ML VIAL IVP ONE (15:45)
[2017-07-17] MEDS ORDERED: KETOROLAC 30 MG/ML VIAL IVP ONE (15:45)
[2017-07-17] MEDS ORDERED: fentaNYL INJECTION 100 MCG/2 ML AMP IVP ONE (15:45)
[2017-07-17 15:48] LABS: BASOPHILS % (AUTO) 1 % (0-10); EOSINOPHILS # (AUTO) 0.1 10^3/uL (0.0-0.3); EOSINOPHILS % (AUTO) 1 % (0-10); HEMATOCRIT 41 % (35-52); HEMOGLOBIN 14.8 G/DL (11.5-16.0); LYMPHOCYTES # (AUTO) 1.6 X 10^3 (1.0-4.0); LYMPHOCYTES % (AUTO) 34 % (12-44); MEAN CORPUSCULAR HEMOGLOBIN 33 PG (25-34); MEAN CORPUSCULAR HGB CONC 36 G/DL (32-36); MEAN CORPUSCULAR VOLUME 91 FL (80-99); MEAN PLATELET VOLUME 10.2 FL (7.4-10.4); MONOCYTES # (AUTO) 0.6 X 10^3 (0.0-1.0); MONOCYTES % (AUTO) 13 % (0-12); NEUTROPHILS # (AUTO) 2.4 X 10^3 (1.8-7.8); NEUTROPHILS % (AUTO) 51 % (42-75); PLATELET COUNT 165 10^3/uL (130-400); RED BLOOD COUNT 4.51 10^6/uL (4.35-5.85); RED CELL DISTRIBUTION WIDTH 13.5 % (10.0-14.5); WHITE BLOOD COUNT 4.8 10^3/uL (4.3-11.0)
[2017-07-17 16:06] LABS: ALANINE AMINOTRANSFERASE 19 U/L (0-55); ALBUMIN 3.9 GM/DL (3.2-4.5); ALKALINE PHOSPHATASE 64 U/L (40-136); BILIRUBIN,TOTAL 2.6 MG/DL (0.1-1.0); BUN/CREATININE RATIO 22; CALCIUM 9.1 MG/DL (8.5-10.1); CARBON DIOXIDE 27 MMOL/L (21-32); CHLORIDE 101 MMOL/L (98-107); CREATININE SERUM 0.77 MG/DL (0.60-1.30); GFR ESTIMATED > 60; GLUCOSE 111 MG/DL (70-105); POTASSIUM 3.7 MMOL/L (3.6-5.0); SODIUM 142 MMOL/L (135-145); TOTAL PROTEIN 6.7 GM/DL (6.4-8.2)
--- NOTE | 2017-07-17 16:09 | ED Back Pain ---
General Chief Complaint: Back Problems Stated Complaint: LOWER BACK PAIN Nursing Triage Note: TO ROOM PER W/C REPORTS THAT SHE HAD ONSET OF BACK PAIN THAT WAS ON AND OFF LAST WEEK THAN BACK LAST NIGHT WORSE TODAY. Nursing Sepsis Screen: No Definite Risk Source of Information: Patient Exam Limitations: No Limitations History of Present Illness Date Seen by Provider: Jul 17, 2017 Time Seen by Provider: 16:08 Initial Comments To ER with severe right flank pain. This is been intermittent for the past week with persistent since last night even worse today. She has had an intense cough for the past few days without fever Location: [facility] Timing/Duration: 1 Week Severity: Moderate Allergies and Home Medications Allergies Coded Allergies: Penicillins (Unverified Allergy, Unknown, 02/22/10) erythromycin base (Unverified Allergy, Unknown, 02/22/10) Home Medications Aspirin 81 Mg Tabec, 81 MG PO DAILY, (Reported) Atorvastatin Calcium 80 Mg Tablet, 80 MG PO HS, (Reported) Doxycycline Hyclate 100 Mg Tablet, 100 MG PO BID, #20 Ref 0 Prescribed by: STERLING MEJIAS on 12/02/16 0928 Isosorbide Mononitrate 30 Mg Tab.sr.24h, 30 MG PO DAILY, (Reported) Magnesium Oxide 400 Mg Capsule, 400 MG PO AM & NOON, (Reported) Metoprolol Succinate 25 Mg Tab.sr.24h, 25 MG PO DAILY, (Reported) [place]-3 Fatty Acids/Fish Oil 1 Each Capsule, 1,000 MG PO TID, (Reported) Oxycodone HCl/Acetaminophen 1 Each Tablet, 1 EACH PO Q4H PRN for PAIN-SEVERE, # 30 Prescribed by: LARRY LEÓN on 07/17/17 1647 Pantoprazole Sod 40 Mg Tab, 40 MG PO DAILY, (Reported) Prednisone 20 Mg Tab, 40 MG PO DAILY, #12 Prescribed by: STERLING MEJIAS on 04/20/16 1148 Tramadol HCl 50 Mg Tablet, 50 MG PO Q6H PRN for PAIN, #20 Prescribed by: STERLING MEJIAS on 04/20/16 1148 Constitutional: see HPI EENTM: see HPI Respiratory: no symptoms reported Cardiovascular: no symptoms reported Genitourinary: see HPI, pain Musculoskeletal: no symptoms reported Skin: no symptoms reported Psychiatric/Neurological: No Symptoms Reported Past Cpviipr-Minqzi-Mnwpmd Hx Patient Social History Alcohol Use: Denies Use Recreational Drug Use: No Recent Foreign Travel: No Contact w/Someone Who Travel: No Recent Infectious Disease Expo: No Recent Hopitalizations: No Immunizations Up To Date Tetanus Booster (TDap): More than 5yrs Surgeries History of Surgeries: Yes (HEART CATH) Surgeries: Eye Surgery Respiratory History of Respiratory Disorde: No Cardiovascular History of Cardiac Disorders: Yes (STENT) Cardiac Disorders: Heart Attack, Hypertension Neurological History of Neurological Disord: No Reproductive System Hx Reproductive Disorders: No Gastrointestinal History of Gastrointestinal Di: No Musculoskeletal History of Musculoskeletal Dis: No Endocrine History of Endocrine Disorders: No HEENT HEENT Disorders: Cataract Loss of Vision: Denies Cancer History of Cancer: No Psychosocial History of Psychiatric Problem: Yes Behavioral Health Disorders: Anxiety Integumentary History of Skin or Integumenta: No Blood Transfusions History of Blood Disorders: No Family Medical History Significant Family History: Heart Disease Family Medial History: AIDS Arthritis 19 MOTHER, Onset:50's - 60 Deafness or hearing loss 19 FATHER, Onset:60 years & older 19 MOTHER, Onset:60 years & older Myocardial infarction 19 FATHER, Onset:60 years & older Visual disorder 19 FATHER, Onset:50's - 60 19 MOTHER, Onset:50's - 60 No Family History of: Abdominal aortic aneurysm Frank's disease Alcoholism Alzheimer's disease Aphasia Asthma Cancer of mouth Cardiovascular disease Cataracts Colon cancer Completed stroke Congenital disease Congenital heart disease Coronary thrombosis Cystic fibrosis Dementia Diabetes mellitus Drug abuse Dysphasia Fibrocystic disease of breast Gastroenteritis Glaucoma Headache disorder Hypercholesterolemia Hypertension Infertility Kidney disease Neoplasm Osteoporosis Parkinson's disease Prostate cancer Psychosocial problem Respiratory disorder Seizure disorder Severe allergy Thyroid disease Tuberculosis Physical Exam Vital Signs Vital Signs - First Documented 07/17/17 15:15 Temp 98.9 B/P (MAP) 169/101 (123) Capillary Refill : Less Than 3 Seconds General Appearance: No Apparent Distress, WD/WN, Anxious HEENT: PERRL/EOMI, TMs Normal Neck: Full Range of Motion, Normal Inspection Respiratory: Normal Breath Sounds, No Accessory Muscle Use, No Respiratory Distress Gastrointestinal: Normal Bowel Sounds, Non Tender, Soft Extremity: Normal Capillary Refill, Normal Inspection Neurologic/Psychiatric: Alert, Oriented x3, No Motor/Sensory Deficits Skin: Normal Color, Warm/Dry Progress/Results/Core Measures Results/Orders Lab Results Laboratory Tests Test 07/17/17 15:40 Range/Units White Blood Count 4.8 4.3-11.0 10^3/uL Red Blood Count 4.51 4.35-5.85 10^6/uL Hemoglobin 14.8 11.5-16.0 G/DL Hematocrit 41 35-52 % Mean Corpuscular Volume 91 80-99 FL Mean Corpuscular Hemoglobin 33 25-34 PG Mean Corpuscular Hemoglobin Concent 36 32-36 G/DL Red Cell Distribution Width 13.5 10.0-14.5 % Platelet Count 165 130-400 10^3/uL Mean Platelet Volume 10.2 7.4-10.4 FL Neutrophils (%) (Auto) 51 42-75 % Lymphocytes (%) (Auto) 34 12-44 % Monocytes (%) (Auto) 13 H 0-12 % Eosinophils (%) (Auto) 1 0-10 % Basophils (%) (Auto) 1 0-10 % Neutrophils # (Auto) 2.4 1.8-7.8 X 10^3 Lymphocytes # (Auto) 1.6 1.0-4.0 X 10^3 Monocytes # (Auto) 0.6 0.0-1.0 X 10^3 Eosinophils # (Auto) 0.1 0.0-0.3 10^3/uL Basophils # (Auto) 0.0 0.0-0.1 10^3/uL Sodium Level 142 135-145 MMOL/L Potassium Level 3.7 3.6-5.0 MMOL/L Chloride Level 101 98-107 MMOL/L Carbon Dioxide Level 27 21-32 MMOL/L Anion Gap 14 5-14 MMOL/L Blood Urea Nitrogen 17 7-18 MG/DL Creatinine 0.77 0.60-1.30 MG/DL Estimat Glomerular Filtration Rate > 60 BUN/Creatinine Ratio 22 Glucose Level 111 H 70-105 MG/DL Calcium Level 9.1 8.5-10.1 MG/DL Total Bilirubin 2.6 H 0.1-1.0 MG/DL Aspartate Amino Transf (AST/SGOT) 32 5-34 U/L Alanine Aminotransferase (ALT/SGPT) 19 0-55 U/L Alkaline Phosphatase 64 40-136 U/L Total Protein 6.7 6.4-8.2 GM/DL Albumin 3.9 3.2-4.5 GM/DL Lipase 13 8-78 U/L My Orders Orders - LARRY LEÓN APRN Cbc With Automated Diff (07/17/17 15:34) Comprehensive Metabolic Panel (07/17/17 15:34) Ua Culture If Indicated (07/17/17 15:34) Saline Lock/Iv-Start (07/17/17 15:34) Ketorolac Injection (Toradol Injection) (07/17/17 15:45) Fentanyl Injection (Sublimaze Injection (07/17/17 15:45) Hydromorphone Injection (Dilaudid Inject (07/17/17 15:45) Ct Abd/Pelvis Wo(Kidney Stone) (07/17/17 15:46) Us Gallbladder 88130 (07/17/17 16:30) Lipase (07/17/17 16:31) Chest 1 View, Ap/Pa Only (07/17/17 16:44) Oxycodone/Apap 5/325mg Tablet (Percocet (07/17/17 16:45) Incentive Spirometryrt Initial (07/17/17 16:48) Incentive Spirometry (Nursing) Q2H (07/17/17 16:48) Ondansetron Injection (Zofran Injectio (07/17/17 17:15) Ondansetron Injection (Zofran Injectio (07/17/17 17:02) Medications Given in ED Current Medications Medications Dose Ordered Sig/Artur Route Start Time Stop Time Status Last Admin Dose Admin Fentanyl Citrate 50 mcg ONCE ONCE IVP 07/17/17 15:45 07/17/17 15:46 DC 07/17/17 15:40 50 MCG Hydromorphone HCl 0.5 mg ONCE ONCE IVP 07/17/17 15:45 07/17/17 15:46 DC 07/17/17 15:53 0.5 MG Ketorolac Tromethamine 30 mg ONCE ONCE IVP 07/17/17 15:45 07/17/17 15:46 DC 07/17/17 15:40 30 MG Ondansetron HCl 8 mg ONCE ONCE IVP 07/17/17 17:15 07/17/17 17:16 DC 07/17/17 17:05 8 MG Oxycodone/ Acetaminophen 1 tab ONCE ONCE PO 07/17/17 16:45 07/17/17 16:46 DC 07/17/17 16:59 1 TAB Vital Signs/I&O Vital Sign - Last 12Hours 07/17/17 15:15 Temp 98.9 B/P (MAP) 169/101 (123) Blood Pressure Mean: 123 Diagnostic Imaging Diagonstic Imaging: CT Comments NAME: NIRANJAN RICCI [facility] REC#: [id number] PT STATUS: REG ER : 1940 PHYSICIAN: LARRY LEÓN APRN ADMIT DATE: 07/17/17/ER Draft Date of Exam:07/17/17 CT ABD/PELVIS WO(KIDNEY STONE) INDICATION: Right-sided abdominal pain. CT of the abdomen and pelvis obtained without IV contrast. There is no prior study for comparison. FINDINGS: The visualized portions of the lung bases are clear. There were no pleural fluid collections. There is no free intraperitoneal air. There is a fracture of the right 11th rib medially near the costovertebral junction, this appears to be either acute or subacute. Correlate for trauma to this area. The liver shows no focal lesions. There are gallstones layering posteriorly in the gallbladder without significant gallbladder distention or wall thickening. Spleen, adrenals, and pancreas are normal in appearance. The kidneys bilaterally showed no radiopaque calculi or hydronephrosis. There is no retroperitoneal mass or adenopathy. There is atherosclerotic calcification of the aorta without evidence of aneurysm. There is no adnexal mass or pelvic free fluid. The visualized bowel loops appear grossly unremarkable. A hiatal hernia is noted. IMPRESSION: No evidence of urinary tract stone or hydronephrosis. Incidental gallstones without gallbladder distention or wall thickening. Right 11th rib fracture posteromedially near the costovertebral junction, this appears to be acute or subacute, correlate with trauma to this area. A hiatal hernia is noted. There were no other significant findings. Dictated on workstation # [id number] Dict: 07/17/17 1624 Trans: 07/17/17 1632 [facility] [id number] Interpreted by: STEVEN OSBORN MD Electronically signed by: NAME: NIRANJAN RICCI [facility] REC#: [id number] PT STATUS: REG ER : 1940 PHYSICIAN: LARRY LEÓN APRN ADMIT DATE: 07/17/17/ER Draft Date of Exam:07/17/17 [place] GALLBLADDER [id number] INDICATION: Back pain. TECHNIQUE: Multiple grayscale sonographic images were obtained of the right upper quadrant of the abdomen. CORRELATION STUDY: None. FINDINGS: LIVER: There is uniform echotexture within the visualized portions of the liver. Liver length at 14 cm. GALLBLADDER: There is presence of multiple tiny mobile gallstones. No definitive gallbladder wall thickening and/or pericholecystic fluid. COMMON BILE DUCT: Not visualized, obscured by overlying bowel gas. PANCREAS: Obscured by bowel gas. RIGHT KIDNEY: Measures 10.5 cm. No hydronephrosis. AORTA/IVC: Not well visualized. OTHER: None. IMPRESSION: 1. Cholelithiasis with multiple small gallstones. No definitive evidence to suggest acute cholecystitis at this time. However, given the size of the stones, can precipitate for potential bile duct obstruction. Dictated on workstation # [id number] Dict: 07/17/17 1706 Trans: 07/17/17 1712 [id number] Interpreted by: JOSEFA MARCANO DO Electronically signed by: Departure Impression Impression: Primary Impression: Rib fracture Disposition: 01 HOME, SELF-CARE Condition: Improved Departure-Patient Inst. Decision time for Depature: 16:46 Referrals: JENNIFER MANCINI MD (PCP/Family) Primary Care Physician Patient Instructions: RIB FRACTURE Add. Discharge Instructions: 1. Return to ER for any concerns 2. Follow-up with Dr. Mancini on Saturday for recheck. If he cannot get in Saturday , follow-up the first of next week for recheck. Pain medication as directed. Beware this may constipate you so take an [id number] stool softener such as Colace All discharge instructions reviewed with patient and/or family. Voiced understanding. Scripts Oxycodone HCl/Acetaminophen (Oxycodone-Acetaminophen 5-325) 1 Each Tablet 1 EACH PO Q4H Y for PAIN-SEVERE, #30 TAB Prov: LARRY LEÓN APRN 07/17/17 Images Torso/Trunk 1 - Tenderness Copy Copies To 1: JENNIFER MANCINI MD, PETER J APRN Jul 17, 2017 16:09
--- NOTE | 2017-07-17 16:33 | Diagnostic Imaging Report ---
INDICATION: Right-sided abdominal pain. CT of the abdomen and pelvis obtained without IV contrast. There is no prior study for comparison. FINDINGS: The visualized portions of the lung bases are clear. There were no pleural fluid collections. There is no free intraperitoneal air. There is a fracture of the right 11th rib medially near the costovertebral junction, this appears to be either acute or subacute. Correlate for trauma to this area. The liver shows no focal lesions. There are gallstones layering posteriorly in the gallbladder without significant gallbladder distention or wall thickening. Spleen, adrenals, and pancreas are normal in appearance. The kidneys bilaterally showed no radiopaque calculi or hydronephrosis. There is no retroperitoneal mass or adenopathy. There is atherosclerotic calcification of the aorta without evidence of aneurysm. There is no adnexal mass or pelvic free fluid. The visualized bowel loops appear grossly unremarkable. A hiatal hernia is noted. IMPRESSION: No evidence of urinary tract stone or hydronephrosis. Incidental gallstones without gallbladder distention or wall thickening. Right 11th rib fracture posteromedially near the costovertebral junction, this appears to be acute or subacute, correlate with trauma to this area. A hiatal hernia is noted. There were no other significant findings. Dictated by: Dictated on workstation # [id number]
[2017-07-17] MEDS ORDERED: oxyCODONE/APAP 5/325MG (PERCOCET 5) TABLET PO ONE (16:45)
[2017-07-17] MEDS ORDERED: OXYC-471 PO (16:47)
[2017-07-17] MEDS ORDERED: ONDANSETRON 4 MG/2 ML (SDV) Z0FRAN ONE (17:02)
--- NOTE | 2017-07-17 17:13 | Diagnostic Imaging Report ---
INDICATION: Back pain. TECHNIQUE: Multiple grayscale sonographic images were obtained of the right upper quadrant of the abdomen. CORRELATION STUDY: None. FINDINGS: LIVER: There is uniform echotexture within the visualized portions of the liver. Liver length at 14 cm. GALLBLADDER: There is presence of multiple tiny mobile gallstones. No definitive gallbladder wall thickening and/or pericholecystic fluid. COMMON BILE DUCT: Not visualized, obscured by overlying bowel gas. PANCREAS: Obscured by bowel gas. RIGHT KIDNEY: Measures 10.5 cm. No hydronephrosis. AORTA/IVC: Not well visualized. OTHER: None. IMPRESSION: 1. Cholelithiasis with multiple small gallstones. No definitive evidence to suggest acute cholecystitis at this time. However, given the size of the stones, can precipitate for potential bile duct obstruction. Dictated by: Dictated on workstation # [id number]
[2017-07-17] MEDS ORDERED: ONDANSETRON 4 MG/2 ML (SDV) Z0FRAN IVP ONE (17:15)
[2017-07-17 17:28] VITALS: BP 151/88
--- NOTE | 2017-07-17 17:30 | Diagnostic Imaging Report ---
INDICATION: Low back pain, nausea and vomiting. TECHNIQUE: Single view chest, 5:07 p.m. CORRELATION STUDY: 10/28/2014. FINDINGS: Heart size is enlarged, perhaps slightly increased from prior study. Vasculature is overall within normal limits. Mild prominent interstitial markings with chronic type change about the lung parenchyma. No infiltrate. There has been development of some atelectasis at the right lung base with elevated right diaphragm. IMPRESSION: 1. Development of some right lung volume loss with atelectasis and elevation of the right diaphragm. 2. Pericardial enlargement, changed from prior study, but without overt failure. Dictated by: Dictated on workstation # [id number]
== END 2017-07-17 17:28 | disposition home or self-care (01) ==
LOC: EDUNIT# 15:11 → ER 15:12
DX: S22.31XA Fracture of one rib, right side, initial encounter for closed fracture (principal); I25.2 Old myocardial infarction; F41.9 Anxiety disorder, unspecified; Z82.49 Family history of ischemic heart disease and other diseases of the circulatory system; Z88.5 Allergy status to narcotic agent; Z88.0 Allergy status to penicillin; Z88.1 Allergy status to other antibiotic agents; Z79.82 Long term (current) use of aspirin; Z79.52 Long term (current) use of systemic steroids; X58.XXXA Exposure to other specified factors, initial encounter
CPT/HCPCS: 36415; 71045; 74176; 76705; 80053; 83690; 85025; 94664; 96374; 96375

== ENCOUNTER 2017-07-18 11:26 | Observation (INO) | payer MEDICARE ==
[~2017-07-18] VITALS: Ht 165.1 cm; Wt 69.9 kg
[~2017-07-18 11:26] MED LIST changes: +OXYC-471 PO
--- OUTSIDE RECORDS SUMMARY | 2017-07-18 11:33 | XMS REPORT | Continuity of Care Document ---
Author Author [facility] Organization [facility] Address Unknown Phone Unavailable Allergies Active Description Code Type Severity Reaction Onset Reported/Identified Relationship to Patient Clinical Status Yes erythromycin base [id number] Drug Allergy Unknown N/A 02/22/2010 Yes Penicillins [id number] Drug Allergy Unknown N/A 02/22/2010 Medications There is no data. Problems Date Dx Coded Attending Type Code [...] NOS 02/06/2011 Ot 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 [place] CORON 02/06/2011 Ot 530.81 ESOPHAGEAL REFLUX 02/06/2011 Ot 786.50 CHEST PAIN NOS 02/06/2011 Ot V45.82 PERCUTANEOUS TRANSLUM CORON ANGIOPLASTY 02/06/2011 Ot V58.63 LONG-TERM( CURRENT)USE OF ANTIPLATELET/AN 02/06/2011 Ot V58.66 LONG-TERM ( CURRENT) USE OF ASPIRIN 02/06/2011 Ot V58.69 OTH MED,LT, CURRENT USE 04/14/2012 Ot 272.4 HYPERLIPIDEMIA NEC/NOS 04/14/2012 Ot 276.52 HYPOVOLEMIA 04/14/2012 Ot 300.00 ANXIETY STATE NOS 04/14/2012 Ot 397.0 TRICUSPID VALVE DISEASE 04/14/2012 Ot 401.9 HYPERTENSION NOS 04/14/2012 Ot 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 [place] CORON 04/14/2012 Ot 424.0 MITRAL VALVE DISORDER 04/14/2012 Ot 530.81 ESOPHAGEAL REFLUX 04/14/2012 Ot 780.2 SYNCOPE AND COLLAPSE 04/14/2012 Ot 786.50 CHEST PAIN NOS 04/14/2012 Ot V45.82 PERCUTANEOUS TRANSLUM CORON ANGIOPLASTY 04/14/2012 Ot V58.63 LONG-TERM( CURRENT)USE OF ANTIPLATELET/AN 04/14/2012 Ot V58.66 LONG-TERM ( CURRENT) USE OF ASPIRIN 04/14/2012 Ot V58.69 OTH MED,LT, CURRENT USE 02/04/2013 AR MAGALLANES MD Ot 272.4 HYPERLIPIDEMIA NEC/NOS 02/04/2013 AR MAGALLANES MD Ot 300.00 ANXIETY STATE NOS 02/04/2013 AR MAGALLANES MD Ot 401.9 HYPERTENSION NOS 02/04/2013 AR MAGALLANES MD Ot 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 [place] CORON 02/04/2013 AR MAGALLANES MD Ot 530.81 [...] MAGALLANES MD Ot 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 [place] CORON 11/01/2014 AR MAGALLANES MD Ot 414.12 [...] FOLEY, AR Nichols Ot 401.9 02/04/2015 RACHEL MCNAMARA Ot 272.4 02/04/2015 RACHEL MCNAMARA Ot 414.00 [...] RACHEL MCNAMARA Ot 272.4 03/28/2015 RACHEL MCNAMARA Ot 414.00 03/28/2015 AR MAGALLANES MD Ot 272.4 03/28/2015 SONA FOLEY, AR Nichols Ot 300.00 03/28/2015 SONA FOLEY, AR Nichols Ot 401.9 03/28/2015 SONA FOLEY, AR Nichols Ot 414.00 03/28/2015 SONA FOLEY, AR Nichols Ot 530.81 03/28/2015 SONA FOLEY, AR Nichols Ot 780.2 03/28/2015 SONA FOLEY, AR Nichols Ot 785.9 03/28/2015 Ot 272.4 07/29/2015 LARRY LEÓN APRN Ot E86.9 VOLUME DEPLETION, UNSPECIFIED 07/29/2015 LARRY LEÓN TISSUE RECOVERY TECHNICIAN Ot E87.6 HYPOKALEMIA 07/29/2015 LARRY LEÓN TISSUE RECOVERY TECHNICIAN Ot K52.9 NONINFECTIVE GASTROENTERITIS AND COLITIS 07/29/2015 LARRY LEÓN TISSUE RECOVERY TECHNICIAN Ot N39.0 URINARY TRACT INFECTION, SITE NOT [...] Ot 401.9 HYPERTENSION NOS 04/16/2016 MCNAMARARACHEL SMALL DIMENSION MILL WORKER Ot 272.4 HYPERLIPIDEMIA NEC/NOS 04/16/2016 MCNAMARARACHEL DIMENSION MILL WORKER Ot 414.00 CORON ATHEROSCLER NOS TYPE VESSEL, NATIV 04/16/2016 AR MAGALLANES MD Ot 272.4 HYPERLIPIDEMIA NEC/NOS 04/16/2016 AR MAGALLANES MD Ot 300.00 ANXIETY STATE NOS 04/16/2016 AR MAGALLANES MD Ot 401.9 HYPERTENSION NOS 04/16/2016 SONA FOLEY, AR Nichols Ot 414.00 CORON ATHEROSCLER NOS TYPE VESSEL, NATIV 04/16/2016 SONA FOLEY, AR Nichols Ot 530.81 ESOPHAGEAL REFLUX 04/16/2016 SONA FOLEY, AR Nichols Ot 780.2 SYNCOPE AND COLLAPSE 04/16/2016 AR MAGALLANES MD Ot 785.9 CARDIOVAS SYS SYMP NEC 04/16/2016 [...] MD Ot 401.9 HYPERTENSION NOS 04/20/2016 MCNAMARARACHEL DIMENSION MILL WORKER Ot 272.4 HYPERLIPIDEMIA NEC/NOS 04/20/2016 MCNAMARARACHEL DIMENSION MILL WORKER Ot 414.00 CORON ATHEROSCLER NOS TYPE VESSEL, NATIV 04/20/2016 AR MAGALLANES MD Ot 272.4 HYPERLIPIDEMIA NEC/NOS 04/20/2016 AR MAGALLANES MD Ot 300.00 ANXIETY STATE NOS 04/20/2016 AR MAGALLANES MD Ot 401.9 HYPERTENSION NOS 04/20/2016 AR MAGALLANES [...] PAIN 04/20/2016 STERLING MEJIAS MD Ot Z79.82 FIELD LOGISTICS COORDINATOR (CURRENT) USE OF ASPIRIN 04/20/2016 STERLING MEJIAS MD Ot Z79.899 OTHER FIELD LOGISTICS COORDINATOR (CURRENT) DRUG THERAPY 04/23/2016 STERLING MEJIAS MD Ot I10 ESSENTIAL (PRIMARY) HYPERTENSION 04/23/2016 STERLING MEJIAS MD Ot M47.26 OTHER SPONDYLOSIS WITH RADICULOPATHY, REINALDO 04/23/2016 STERLING MEJIAS MD Ot M54.5 LOW BACK PAIN 04/23/2016 STERLING MEJIAS MD Ot Z79.82 FIELD LOGISTICS COORDINATOR (CURRENT) USE OF ASPIRIN 04/23/2016 STERLING MEJIAS MD Ot Z79.899 OTHER FIELD LOGISTICS COORDINATOR (CURRENT) DRUG THERAPY 04/26/2016 STERLING MEJIAS MD Ot I10 ESSENTIAL (PRIMARY) HYPERTENSION 04/26/2016 STERLING MEJIAS MD Ot M47.26 OTHER SPONDYLOSIS WITH RADICULOPATHY, REINALDO 04/26/2016 STERLING MEJIAS MD Ot M54.5 LOW BACK PAIN 04/26/2016 STERLING MEJIAS MD Ot Z79.82 SENIOR LIVING (CURRENT) USE OF ASPIRIN 04/26/2016 STERLING MEJIAS MD, Ot Z79.899 OTHER FIELD LOGISTICS COORDINATOR (CURRENT) DRUG THERAPY 05/09/2016 LUCIUS FAROOQ APRN Ot M54.5 LOW BACK PAIN 07/25/2016 QUIRINO LAWRENCE Ot E78.2 MIXED HYPERLIPIDEMIA 07/25/2016 QUIRINO LAWRENCE Ot I10 ESSENTIAL (PRIMARY) HYPERTENSION 07/25/2016 QUIRINO LAWRENCE Ot I25.10 ATHSCL HEART DISEASE OF [place] CORONARY 07/25/2016 QUIRINO LAWRENCE Ot E78.2 MIXED HYPERLIPIDEMIA 07/25/2016 QUIRINO LAWRENCE Ot I10 ESSENTIAL (PRIMARY) HYPERTENSION 07/25/2016 QUIRINO LAWRENCE Ot I25.10 ATHSCL HEART DISEASE OF [place] CORONARY 08/01/2016 AR MAGALLANES MD Ot I25.10 ATHSCL HEART DISEASE OF [place] CORONARY 08/01/2016 AR MAGALLANES MD Ot I25.10 ATHSCL HEART DISEASE OF [place] CORONARY 08/02/2016 AR MAGALLANES MD Ot E78.2 MIXED HYPERLIPIDEMIA 08/02/2016 AR MAGALLANES MD Ot I10 ESSENTIAL (PRIMARY) HYPERTENSION 08/02/2016 AR MAGALLANES MD Ot I25.10 ATHSCL HEART DISEASE OF [place] CORONARY 08/02/2016 AR MAGALLANES MD Ot R07.9 CHEST PAIN, UNSPECIFIED 08/02/2016 AR MAGALLANES MD Ot R09.89 OTH SYMPTOMS AND SIGNS INVOLVING THE CIR 08/02/2016 AR MAGALLANES MD Ot R55 SYNCOPE AND COLLAPSE 08/03/2016 AR MAGALLANES MD Ot E78.2 MIXED HYPERLIPIDEMIA 08/03/2016 AR MAGALLANES MD Ot I10 ESSENTIAL (PRIMARY) HYPERTENSION 08/03/2016 AR MAGALLANES MD Ot I25.10 ATHSCL HEART DISEASE OF [place] CORONARY 08/03/2016 AR MAGALLANES MD Ot R07.9 CHEST PAIN, UNSPECIFIED 08/03/2016 AR MAGALLANES MD Ot R09.89 OTH SYMPTOMS AND SIGNS INVOLVING THE CIR 08/03/2016 AR MAGALLANES MD Ot R55 SYNCOPE AND COLLAPSE 08/03/2016 AR MAGALLANES MD Ot E78.2 MIXED HYPERLIPIDEMIA 08/03/2016 AR MAGALLANES MD Ot I10 ESSENTIAL (PRIMARY) HYPERTENSION 08/03/2016 AR MAGALLANES MD Ot I25.10 ATHSCL HEART DISEASE OF [place] CORONARY 08/03/2016 AR MAGALLANES MD Ot R07.9 CHEST PAIN, UNSPECIFIED 08/03/2016 AR MAGALLANES MD Ot R09.89 OTH SYMPTOMS AND SIGNS INVOLVING THE CIR 08/03/2016 AR MAGALLANES MD Ot R55 SYNCOPE AND COLLAPSE 08/14/2016 QUIRINO LAWRENCE Ot E78.2 MIXED HYPERLIPIDEMIA 08/14/2016 QUIRINO LAWRENCE Ot I10 ESSENTIAL (PRIMARY) HYPERTENSION 08/14/2016 QUIRINO LAWRENCE Ot I25.10 ATHSCL HEART DISEASE OF [place] CORONARY 08/22/2016 AR MAGALLANES MD Ot E78.2 MIXED HYPERLIPIDEMIA 08/22/2016 AR MAGALLANES MD Ot I10 ESSENTIAL (PRIMARY) HYPERTENSION 08/22/2016 AR MAGALLANES MD Ot I25.10 ATHSCL HEART DISEASE OF [place] CORONARY 08/22/2016 AR MAGALLANES MD Ot R07.9 CHEST PAIN, UNSPECIFIED 08/22/2016 AR MAGALLANES MD Ot R09.89 OTH SYMPTOMS AND SIGNS INVOLVING THE CIR 08/22/2016 AR MAGALLANES MD Ot R55 SYNCOPE AND COLLAPSE 09/06/2016 AR MAGALLANES MD Ot E78.2 MIXED HYPERLIPIDEMIA 09/06/2016 AR MAGALLANES MD Ot I10 ESSENTIAL (PRIMARY) HYPERTENSION 09/06/2016 AR MAGALLANES MD Ot I25.10 ATHSCL HEART DISEASE OF [place] CORONARY 09/06/2016 AR MAGALLANES MD Ot R07.9 CHEST PAIN, UNSPECIFIED 09/06/2016 AR MAGALLANES MD Ot R09.89 OTH SYMPTOMS AND SIGNS INVOLVING THE CIR 09/06/2016 AR MAGALLANES MD Ot R55 SYNCOPE AND COLLAPSE 09/18/2016 AR MAGALLANES MD Ot E78.2 MIXED HYPERLIPIDEMIA 09/18/2016 AR MAGALLANES MD Ot I10 ESSENTIAL (PRIMARY) HYPERTENSION 09/18/2016 AR MAGALLANES MD Ot I25.10 ATHSCL HEART DISEASE OF [place] CORONARY 09/18/2016 AR MAGALLANES MD Ot R07.9 CHEST PAIN, UNSPECIFIED 09/18/2016 AR MAGALLANES MD Ot R09.89 OTH SYMPTOMS AND SIGNS INVOLVING THE CIR 09/18/2016 AR MAGALLANES MD Ot R55 SYNCOPE AND COLLAPSE 12/02/2016 STERLING MEJIAS MD, Ot F41.9 ANXIETY DISORDER, UNSPECIFIED 12/02/2016 STERLING MEJIAS MD, Ot I10 ESSENTIAL (PRIMARY) HYPERTENSION 12/02/2016 STERLING MEJIAS MD, Ot I25.2 OLD MYOCARDIAL INFARCTION 12/02/2016 STERLING MEJIAS MD Ot L03.116 CELLULITIS OF LEFT LOWER LIMB 12/02/2016 STERLING MEJIAS MD Ot M25.511 PAIN IN RIGHT SHOULDER 12/02/2016 STERLING MEJIAS MD Ot S40.261A INSECT BITE (NONVENOMOUS) OF RIGHT SHOUL 12/02/2016 STERLING MEJIAS MD, Ot S90.862A INSECT BITE (NONVENOMOUS), LEFT FOOT, IN 12/02/2016 STERLING MEJIAS MD Ot W57.XXXA BIT/STUNG BY NONVENOM INSECT OTH NONVE 12/02/2016 STERLING MEJIAS MD Ot Z79.82 FIELD LOGISTICS COORDINATOR (CURRENT) USE OF ASPIRIN 12/02/2016 STERLING MEJIAS MD Ot Z95.5 PRESENCE OF CORONARY ANGIOPLASTY IMPLANT 12/05/2016 JENNIFER RUIZ MD Ot M79.662 PAIN IN LEFT LOWER LEG 12/06/2016 JENNIFER RUIZ MD Ot R22.42 LOCALIZED SWELLING, MASS AND LUMP, LEFT 12/06/2016 JENNIFER RUIZ MD Ot R22.42 LOCALIZED SWELLING, MASS AND LUMP, LEFT 12/17/2016 JENNIFER RUIZ MD Ot R22.42 LOCALIZED SWELLING, MASS AND LUMP, LEFT 12/26/2016 JENNIFER RUIZ MD Ot R22.42 LOCALIZED SWELLING, MASS AND LUMP, LEFT 01/30/2017 JENNIFER RUIZ MD Ot R22.42 LOCALIZED SWELLING, MASS AND LUMP, LEFT Procedures Code Description Performed By Performed On 00.40 PROCEDURE ON SINGLE VESSEL 10/29/2014 00.47 INSERTION OF THREE VASCULAR STENTS 10/29/2014 00.66 PERCUTANEOUS TRANSLUMINAL CORONARY ANGIO 10/29/2014 36.07 INSRT OF DRUG-ELUTING CORON ARTERY STENT 10/29/2014 37.22 LEFT HEART CARDIAC CATH 10/29/2014 88.53 LT HEART ANGIOCARDIOGRAM 10/29/2014 88.56 CORONAR ARTERIOGR-2 CATH 10/29/2014 Results There is no data. Encounters ACCT No. Visit Date/Time Discharge Status Pt. Type Provider Facility Loc./Unit Complaint [id number] 12/05/2016 11:52:00 12/05/2016 23:59:59 CLS Outpatient JENNIFER RUIZ MD [facility] RAD LEG SWELLING [id number] 12/02/2016 08:55:00 12/02/2016 10:20:00 DIS Emergency STERLING MEJIAS MD [facility] ER R SIDE NECK PAIN [id number] 08/01/2016 09:20:00 08/01/2016 23:59:59 CLS Outpatient AR MAGALLANES MD [facility] CARD CAD,CHEST PAIN,HTN [id number] 07/24/2016 08:40:00 07/24/2016 23:59:59 CLS Outpatient QUIRINO LAWRENCE [facility] LAB CAD,HTN,HLP [id number] 04/20/2016 10:18:00 04/20/2016 12:09:00 DIS Emergency STERLING MEJIAS MD [facility] ER BACK PAIN [id number] 04/16/2016 12:16:00 04/16/2016 23:59:59 CLS Outpatient LUCIUS FAROOQ TISSUE RECOVERY TECHNICIAN [facility] RAD BACK PAIN [id number] 07/29/2015 12:09:00 07/29/2015 14:44:00 DIS Emergency LARRY LEÓN TISSUE RECOVERY TECHNICIAN [facility] ER VOMITING [id number] 07/27/2015 08:48:00 07/27/2015 23:59:59 CLS Outpatient QUIRINO LAWRENCE [facility] LAB HLP [id number] 10/29/2014 14:30:00 11/01/2014 09:57:00 DIS Inpatient AR MAGALLANES MD [facility] CSD CHEST PAIN [id number] 07/29/2013 09:13:00 07/29/2013 23:59:59 CLS Outpatient AR MAGALLANES MD [facility] LAB CAD,HYPERLIPIDEMIA,HTN, GERD,SYNCOPE [id number] 02/03/2013 14:07:00 02/04/2013 14:30:00 DIS Inpatient AR MAGALLANES MD [facility] CSD CHEST PAIN [id number] 01/28/2013 08:51:00 01/28/2013 23:59:59 CLS Outpatient RACHEL MCNAMARA [facility] LAB CAD,HLP [id number] 09/29/2012 08:51:00 09/29/2012 23:59:59 CLS Outpatient AR MAGALLANES MD [facility] LAB HYPERTENSION, HYPERLIPIDEMIA [id number] 02/04/2015 09:26:00 Document Registration [id number] 02/04/2015 09:25:00 Document Registration [id number] 02/04/2015 09:25:00 Document Registration [id number] 02/04/2015 09:25:00 Document Registration [id number] 07/27/2014 09:20:00 Document Registration [id number] 04/21/2012 08:52:00 Document Registration [id number] 04/12/2012 16:14:00 Document Registration [id number] 02/13/2012 10:17:00 Document Registration [id number] 02/01/2012 12:18:00 Document Registration [id number] 12/03/2011 08:47:00 Document Registration [id number] 05/31/2011 08:39:00 Document Registration [id number] 03/13/2011 08:40:00 Document Registration [id number] 02/05/2011 15:30:00 Document Registration [id number] 02/22/2010 10:36:00 Document Registration [id number] 12/09/2009 09:58:00 Document Registration
[2017-07-18] MEDS ORDERED: KETOROLAC 30 MG/ML VIAL IVP ONE (12:00)
[2017-07-18] MEDS ORDERED: ONDANSETRON 4 MG/2 ML (SDV) Z0FRAN IVP ONE (12:00)
--- NOTE | 2017-07-18 12:01 | ED Back Pain ---
General Chief Complaint: Back Problems Stated Complaint: BACK PAIN Nursing Triage Note: PATIENT STATES THAT SHE HAS A BROKEN RIB FROM A COUGH. PAIN IS UNBEARABLE. Nursing Sepsis Screen: No Definite Risk Source of Information: Patient Exam Limitations: No Limitations (LARRY DUPREE APRN) History of Present Illness Date Seen by Provider: Jul 18, 2017 Time Seen by Provider: 11:59 Initial Comments To ER per EMS from home with reports of vomiting and inability to take her pain medication because of this. She was seen here in the emergency room yesterday with right flank pain and found to have an 11th rib fracture which was likely secondary to coughing that she had an intense cough for a few days but no injuries or falls. She was given pain medication here which resulted in nausea she was then given nausea medication and symptoms improved. She was discharged home or her granddaughter will stay with her. She awakened this morning unable to take pain medication because of her nausea. Location: T-Spine Timing/Duration: 1-2 Days Severity: Moderate (LARRY DUPREE APRN) Allergies and Home Medications Allergies Coded Allergies: Penicillins (Unverified Allergy, Unknown, 02/22/10) erythromycin base (Unverified Allergy, Unknown, 02/22/10) Home Medications Aspirin 81 Mg Tabec, 81 MG PO DAILY, (Reported) Atorvastatin Calcium 80 Mg Tablet, 80 MG PO HS, (Reported) Doxycycline Hyclate 100 Mg Tablet, 100 MG PO BID, #20 Ref 0 Prescribed by: STERLING MEJIAS on 12/02/16 0928 Isosorbide Mononitrate 30 Mg Tab.sr.24h, 30 MG PO DAILY, (Reported) Magnesium Oxide 400 Mg Capsule, 400 MG PO AM & NOON, (Reported) Metoprolol Succinate 25 Mg Tab.sr.24h, 25 MG PO DAILY, (Reported) Tarrs-3 Fatty Acids/Fish Oil 1 Each Capsule, 1,000 MG PO TID, (Reported) Oxycodone HCl/Acetaminophen 1 Each Tablet, 1 EACH PO Q4H PRN for PAIN-SEVERE, # 30 Prescribed by: LARRY DUPREE on 07/17/17 1647 Pantoprazole Sod 40 Mg Tab, 40 MG PO DAILY, (Reported) Prednisone 20 Mg Tab, 40 MG PO DAILY, #12 Prescribed by: STERLING MEJIAS on 04/20/16 1148 Tramadol HCl 50 Mg Tablet, 50 MG PO Q6H PRN for PAIN, #20 Prescribed by: STERLING MEJIAS on 04/20/16 1148 Constitutional: see HPI EENTM: see HPI Respiratory: no symptoms reported Cardiovascular: no symptoms reported Genitourinary: no symptoms reported Musculoskeletal: see HPI Skin: no symptoms reported Psychiatric/Neurological: No Symptoms Reported (LARRY DUPREE APRN) Past Nyyxhjl-Leiinz-Bhcmzb Hx Patient Social History Alcohol Use: Denies Use Recreational Drug Use: No Smoking Status: Never a Smoker 2nd Hand Smoke Exposure: Yes Recent Foreign Travel: No Contact w/Someone Who Travel: No Recent Infectious Disease Expo: No Recent Hopitalizations: No Physical Abuse: No Sexual Abuse: No (LARRY DUPREE APRN) Immunizations Up To Date Tetanus Booster (TDap): More than 5yrs (LARRY DUPREE APRN) Surgeries History of Surgeries: Yes (HEART CATH) Surgeries: Eye Surgery (LARRY DUPREE APRN) Respiratory History of Respiratory Disorde: No (LARRY DUPREE APRN) Cardiovascular History of Cardiac Disorders: Yes (STENT) Cardiac Disorders: Heart Attack, Hypertension (LARRY DUPREE APRN) Neurological History of Neurological Disord: No (LARRY DUPREE APRN) Reproductive System Hx Reproductive Disorders: No (LARRY DUPREE APRN) Gastrointestinal History of Gastrointestinal Di: No (LARRY DUPREE APRN) Musculoskeletal History of Musculoskeletal Dis: No (LARRY DUPREE APRN) Endocrine History of Endocrine Disorders: No (LARRY DUPREE APRN) HEENT HEENT Disorders: Cataract Loss of Vision: Denies (LARRY DUPREE APRN) Cancer History of Cancer: No (LARRY DUPREE APRN) Psychosocial History of Psychiatric Problem: Yes Behavioral Health Disorders: Anxiety Suicide Risk Score: 0 (LARRY DUPREE APRN) Integumentary History of Skin or Integumenta: No (LARYR DUPREE APRN) Blood Transfusions History of Blood Disorders: No (LARRY DUPREE APRN) Family Medical History Significant Family History: Heart Disease Family Medial History: AIDS Arthritis 19 MOTHER, Onset:50's - 60 Deafness or hearing loss 19 FATHER, Onset:60 years & older 19 MOTHER, Onset:60 years & older Myocardial infarction 19 FATHER, Onset:60 years & older Visual disorder 19 FATHER, Onset:50's - 60 19 MOTHER, Onset:50's - 60 No Family History of: Abdominal aortic aneurysm Frank's disease Alcoholism Alzheimer's disease Aphasia Asthma Cancer of mouth Cardiovascular disease Cataracts Colon cancer Completed stroke Congenital disease Congenital heart disease Coronary thrombosis Cystic fibrosis Dementia Diabetes mellitus Drug abuse Dysphasia Fibrocystic disease of breast Gastroenteritis Glaucoma Headache disorder Hypercholesterolemia Hypertension Infertility Kidney disease Neoplasm Osteoporosis Parkinson's disease Prostate cancer Psychosocial problem Respiratory disorder Seizure disorder Severe allergy Thyroid disease Tuberculosis (LARRY DUPREE APRN) Family Medial History: AIDS Arthritis 19 MOTHER, Onset:50's - 60 Deafness or hearing loss 19 FATHER, Onset:60 years & older 19 MOTHER, Onset:60 years & older Myocardial infarction 19 FATHER, Onset:60 years & older Visual disorder 19 FATHER, Onset:50's - 60 19 MOTHER, Onset:50's No Family History of: Abdominal aortic aneurysm Frank's disease Alcoholism Alzheimer's disease Aphasia Asthma Cancer of mouth Cardiovascular disease Cataracts Colon cancer Completed stroke Congenital disease Congenital heart disease Coronary thrombosis Cystic fibrosis Dementia Diabetes mellitus Drug abuse Dysphasia Fibrocystic disease of breast Gastroenteritis Glaucoma Headache disorder Hypercholesterolemia Hypertension Infertility Kidney disease Neoplasm Osteoporosis Parkinson's disease Prostate cancer Psychosocial problem Respiratory disorder Seizure disorder Severe allergy Thyroid disease Tuberculosis (STERLING MEJIAS MD) Physical Exam Vital Signs Vital Signs - First Documented 07/18/17 11:33 Temp 95.5 Pulse 80 Resp 22 B/P (MAP) 146/66 (92) Pulse Ox 97 O2 Delivery Room Air (STERLING MEJIAS MD) Vital Signs Capillary Refill : Less Than 3 Seconds (LARRY DUPREE APRN) General Appearance: No Apparent Distress, WD/WN, Other (EMS gave 100 g of fentanyl and 4 mg of Zofran in route to the hospital which markedly improved her symptoms so she is in no distress at this time) HEENT: PERRL/EOMI, TMs Normal Neck: Full Range of Motion, Normal Inspection Respiratory: Normal Breath Sounds, No Accessory Muscle Use, No Respiratory Distress Gastrointestinal: Normal Bowel Sounds, Non Tender, Soft Extremity: Normal Capillary Refill, Normal Inspection Neurologic/Psychiatric: Alert, Oriented x3, No Motor/Sensory Deficits Skin: Normal Color, Warm/Dry (LARRY DUPREE APRN) Progress/Results/Core Measures Results/Orders Medications Given in ED Current Medications Medications Dose Ordered Sig/Artur Route Start Time Stop Time Status Last Admin Dose Admin Ketorolac Tromethamine 30 mg ONCE ONCE IVP 07/18/17 12:00 07/18/17 12:01 DC 07/18/17 12:05 30 MG Ondansetron HCl 4 mg ONCE ONCE IVP 07/18/17 12:00 07/18/17 12:01 DC 07/18/17 12:05 4 MG (STERLING MEJIAS MD) Vital Signs/I&O Vital Sign - Last 12Hours 07/18/17 11:33 Temp 95.5 Pulse 80 Resp 22 B/P (MAP) 146/66 (92) Pulse Ox 97 O2 Delivery Room Air (STERLING MEJIAS MD) Blood Pressure Mean: 92 Progress Note : Progress Note I have seen the patient and discussed the current findings with the patient and her son. I have discussed the findings and plan of care with Larry Dupree APRN and agree. We did attempt inpatient rehabilitation although she does not qualify at this point. Patient has had nausea and vomiting with the pain medicines and pain. She was seen yesterday and prescribed medicines that she's been unable to take due to the nausea and pain. The pain medicines yesterday caused her nausea and vomiting. I did discuss the case with Dr. Mancini at 1310 and she accepts patient for admission, observation status. We will continue IV pain and nausea medicines and attempt to get better control of her pain. All of this was discussed with patient and family who agree. Admit, observation status. (STERLING MEJIAS MD) Departure Communication (Admissions) Progress Notes I did discuss with her admission to the rehabilitation floor, nonproductive guarantee this but we could evaluate option. She is not interested in that option she states no, I'll go home and find someone to stay with me. She states she is hungry at this time and would like something to eat and drink. (LARRY DUPREE APRN) Time/Spoke to Admitting Phy: 13:10 (STERLING MEJIAS MD) Impression Impression: Primary Impression: Intractable pain Additional Impression: Right rib fracture Qualified Codes: S22.31XD - Fracture of one rib, right side, subsequent encounter for fracture with routine healing Disposition: ADMITTED INPATIENT Condition: Stable Admissions Decision to Admit Reason: Admit from ER (General) Decision to Admit/Date: Jul 18, 2017 Time/Decision to Admit Time: 13:10 (STERLING MEJIAS MD) Departure-Patient Inst. Referrals: JENNIFER MANCINI MD (PCP/Family) Primary Care Physician LARRY DUPREE APRN Jul 18, 2017 12:01 STERLING MEJIAS MD Jul 18, 2017 13:37
--- OUTSIDE RECORDS SUMMARY | 2017-07-18 14:18 | XMS REPORT | Continuity of Care Document ---
Author Author [facility] Organization [facility] Address Unknown Phone Unavailable Allergies Active Description Code Type Severity Reaction Onset Reported/Identified Relationship to Patient Clinical Status Yes erythromycin base [id number] Drug Allergy Unknown N/A 02/22/2010 Yes Penicillins [id number] Drug Allergy Unknown N/A 02/22/2010 Medications There [...] NOS 02/06/2011 Ot 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 [place] CORON 02/06/2011 Ot 530.81 ESOPHAGEAL REFLUX 02/06/2011 [...] NOS 04/14/2012 Ot 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 [place] CORON 04/14/2012 Ot 424.0 MITRAL VALVE DISORDER [...] MAGALLANES MD Ot 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 [place] CORON 02/04/2013 AR MAGALLANES MD Ot 530.81 [...] MAGALLANES MD Ot 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 [place] CORON 11/01/2014 AR MAGALLANES MD Ot 414.12 [...] E86.9 VOLUME DEPLETION, UNSPECIFIED 07/29/2015 LARRY LEÓN TIPPLE OPERATOR Ot E87.6 HYPOKALEMIA 07/29/2015 LARRY LEÓN TIPPLE OPERATOR Ot K52.9 NONINFECTIVE GASTROENTERITIS AND COLITIS 07/29/2015 LARRY LEÓN TIPPLE OPERATOR Ot N39.0 URINARY TRACT INFECTION, SITE NOT [...] Ot 401.9 HYPERTENSION NOS 04/16/2016 MCNAMARARACHEL SMALL MEDICAL ADMINISTRATIVE SPECIALIST Ot 272.4 HYPERLIPIDEMIA NEC/NOS 04/16/2016 MCNAMARARACHEL MEDICAL ADMINISTRATIVE SPECIALIST Ot 414.00 CORON ATHEROSCLER NOS TYPE VESSEL, [...] MD Ot 401.9 HYPERTENSION NOS 04/20/2016 MCNAMARARACHEL MEDICAL ADMINISTRATIVE SPECIALIST Ot 272.4 HYPERLIPIDEMIA NEC/NOS 04/20/2016 MCNAMARARACHEL MEDICAL ADMINISTRATIVE SPECIALIST Ot 414.00 CORON ATHEROSCLER NOS TYPE VESSEL, [...] PAIN 04/20/2016 STERLING MEJIAS MD Ot 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 04/20/2016 STERLING MEJIAS MD Ot Z79.899 OTHER [employer]ING FOLDER (CURRENT) DRUG THERAPY 04/23/2016 STERLING MEJIAS MD Ot I10 ESSENTIAL (PRIMARY) HYPERTENSION 04/23/2016 STERLING MEJIAS MD Ot M47.26 OTHER SPONDYLOSIS WITH RADICULOPATHY, REINALDO 04/23/2016 STERLING MEJIAS MD Ot M54.5 LOW BACK PAIN 04/23/2016 STERLING MEJIAS MD Ot 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 04/23/2016 STERLING MEJIAS MD Ot Z79.899 OTHER FREN[employer] B[employer]ING FOLDER (CURRENT) DRUG THERAPY 04/26/2016 STERLING MEJIAS MD Ot I10 ESSENTIAL (PRIMARY) HYPERTENSION 04/26/2016 STERLING MEJIAS MD Ot M47.26 OTHER SPONDYLOSIS WITH RADICULOPATHY, REINALDO 04/26/2016 STERLING MEJIAS MD Ot M54.5 LOW BACK PAIN 04/26/2016 STERLING MEJIAS MD Ot Z79.82 SENIOR LIVING (CURRENT) USE OF ASPIRIN 04/26/2016 STERLING MEJIAS MD, Ot Z79.899 OTHER FREN[employer] B[employer]ING FOLDER (CURRENT) DRUG THERAPY 05/09/2016 LUCIUS FAROOQ APRN Ot M54.5 LOW BACK PAIN 07/25/2016 QUIRINO LAWRENCE Ot E78.2 MIXED HYPERLIPIDEMIA 07/25/2016 QUIRINO LAWRENCE Ot I10 ESSENTIAL (PRIMARY) HYPERTENSION 07/25/2016 QUIRINO LAWRENCE Ot I25.10 ATHSCL HEART DISEASE OF [place] CORONARY 07/25/2016 QUIRINO LAWRENCE Ot E78.2 MIXED HYPERLIPIDEMIA 07/25/2016 QUIRINO LAWRENCE Ot I10 ESSENTIAL (PRIMARY) HYPERTENSION 07/25/2016 QUIRINO LAWRENCE Ot I25.10 ATHSCL HEART DISEASE OF [place] CORONARY 08/01/2016 AR MAGALLANES MD Ot I25.10 ATHSCL HEART DISEASE OF [place] CORONARY 08/01/2016 AR MAGALLANES MD Ot I25.10 ATHSCL HEART DISEASE OF [place] CORONARY 08/02/2016 AR MAGALLANES MD Ot E78.2 MIXED HYPERLIPIDEMIA 08/02/2016 AR MAGALLANES MD Ot I10 ESSENTIAL (PRIMARY) HYPERTENSION 08/02/2016 AR MAGALLANES MD Ot I25.10 ATHSCL HEART DISEASE OF [place] CORONARY 08/02/2016 AR MAGALLANES MD Ot R07.9 CHEST PAIN, UNSPECIFIED 08/02/2016 AR MAGALLANES MD Ot R09.89 OTH SYMPTOMS AND SIGNS INVOLVING THE CIR 08/02/2016 AR MAGALLANES MD Ot R55 SYNCOPE AND COLLAPSE 08/03/2016 AR MAGALLANES MD Ot E78.2 MIXED HYPERLIPIDEMIA 08/03/2016 AR MAGALLANES MD Ot I10 ESSENTIAL (PRIMARY) HYPERTENSION 08/03/2016 AR MAGALLANES MD Ot I25.10 ATHSCL HEART DISEASE OF [place] CORONARY 08/03/2016 AR MAGALLANES MD Ot R07.9 CHEST PAIN, UNSPECIFIED 08/03/2016 AR MAGALLANES MD Ot R09.89 OTH SYMPTOMS AND SIGNS INVOLVING THE CIR 08/03/2016 AR MAGALLANES MD Ot R55 SYNCOPE AND COLLAPSE 08/03/2016 AR MAGALLANES MD Ot E78.2 MIXED HYPERLIPIDEMIA 08/03/2016 AR MAGALLANES MD Ot I10 ESSENTIAL (PRIMARY) HYPERTENSION 08/03/2016 AR MAGALLANES MD Ot I25.10 ATHSCL HEART DISEASE OF [place] CORONARY 08/03/2016 AR MAGALLANES MD Ot R07.9 CHEST PAIN, UNSPECIFIED 08/03/2016 AR MAGALLANES MD Ot R09.89 OTH SYMPTOMS AND SIGNS INVOLVING THE CIR 08/03/2016 AR MAGALLANES MD Ot R55 SYNCOPE AND COLLAPSE 08/14/2016 QUIRINO LAWRENCE Ot E78.2 MIXED HYPERLIPIDEMIA 08/14/2016 QUIRINO LAWRENCE Ot I10 ESSENTIAL (PRIMARY) HYPERTENSION 08/14/2016 QUIRINO LAWRENCE Ot I25.10 ATHSCL HEART DISEASE OF [place] CORONARY 08/22/2016 AR MAGALLANES MD Ot E78.2 MIXED HYPERLIPIDEMIA 08/22/2016 AR MAGALLANES MD Ot I10 ESSENTIAL (PRIMARY) HYPERTENSION 08/22/2016 AR MAGALLANES MD Ot I25.10 ATHSCL HEART DISEASE OF [place] CORONARY 08/22/2016 AR MAGALLANES MD Ot R07.9 CHEST PAIN, UNSPECIFIED 08/22/2016 AR MAGALLANES MD Ot R09.89 OTH SYMPTOMS AND SIGNS INVOLVING THE CIR 08/22/2016 AR MAGALLANES MD Ot R55 SYNCOPE AND COLLAPSE 09/06/2016 AR MAGALLANES MD Ot E78.2 MIXED HYPERLIPIDEMIA 09/06/2016 AR MAGALLANES MD Ot I10 ESSENTIAL (PRIMARY) HYPERTENSION 09/06/2016 AR MAGALLANES MD Ot I25.10 ATHSCL HEART DISEASE OF [place] CORONARY 09/06/2016 AR MAGALLANES MD Ot R07.9 CHEST PAIN, UNSPECIFIED 09/06/2016 AR MAGALLANES MD Ot R09.89 OTH SYMPTOMS AND SIGNS INVOLVING THE CIR 09/06/2016 AR MAGALLANES MD Ot R55 SYNCOPE AND COLLAPSE 09/18/2016 AR MAGALLANES MD Ot E78.2 MIXED HYPERLIPIDEMIA 09/18/2016 AR MAGALLANES MD Ot I10 ESSENTIAL (PRIMARY) HYPERTENSION 09/18/2016 AR MAGALLANES MD Ot I25.10 ATHSCL HEART DISEASE OF [place] CORONARY 09/18/2016 AR MAGALLANES MD Ot R07.9 [...] NONVE 12/02/2016 STERLING MEJIAS MD Ot 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 12/02/2016 STERLING MEJIAS [...] Status Pt. Type Provider Facility Loc./Unit Complaint [id number] 12/05/2016 11:52:00 12/05/2016 23:59:59 CLS Outpatient JENNIFER RUIZ MD [facility] RAD LEG SWELLING [id number] 12/02/2016 08:55:00 12/02/2016 10:20:00 DIS Emergency STERLING MEJIAS MD [facility] ER R SIDE NECK PAIN [id number] 08/01/2016 09:20:00 08/01/2016 23:59:59 CLS Outpatient AR MAGALLANES MD [facility] CARD CAD,CHEST PAIN,HTN [id number] 07/24/2016 08:40:00 07/24/2016 23:59:59 CLS Outpatient QUIRINO LAWRENCE [facility] LAB CAD,HTN,HLP [id number] 04/20/2016 10:18:00 04/20/2016 12:09:00 DIS Emergency STERLING MEJIAS MD [facility] ER BACK PAIN [id number] 04/16/2016 12:16:00 04/16/2016 23:59:59 CLS Outpatient LUCIUS FAROOQ TIPPLE OPERATOR [facility] RAD BACK PAIN [id number] 07/29/2015 12:09:00 07/29/2015 14:44:00 DIS Emergency LARRY LEÓN TIPPLE OPERATOR [facility] ER VOMITING [id number] 07/27/2015 08:48:00 07/27/2015 23:59:59 CLS Outpatient QUIRINO LAWRENCE [facility] LAB HLP [id number] 10/29/2014 14:30:00 11/01/2014 09:57:00 DIS Inpatient AR MAGALLANES MD [facility] CSD CHEST PAIN [id number] 07/29/2013 09:13:00 07/29/2013 23:59:59 CLS Outpatient AR MAGALLANES MD [facility] LAB CAD,HYPERLIPIDEMIA,HTN, GERD,SYNCOPE [id number] 02/03/2013 14:07:00 02/04/2013 14:30:00 DIS Inpatient AR MAGALLANES MD [facility] CSD CHEST PAIN [id number] 01/28/2013 08:51:00 01/28/2013 23:59:59 CLS Outpatient RACHEL MCNAMARA [facility] LAB CAD,HLP [id number] 09/29/2012 08:51:00 09/29/2012 23:59:59 CLS Outpatient AR MAGALLANES MD [facility] LAB HYPERTENSION, HYPERLIPIDEMIA [id number] 02/04/2015 09:26:00 Document Registration [id number] 02/04/2015 09:25:00 Document Registration [id number] 02/04/2015 09:25:00 Document Registration [id number] 02/04/2015 09:25:00 Document Registration [id number] 07/27/2014 09:20:00 Document Registration [id number] 04/21/2012 08:52:00 Document Registration [id number] 04/12/2012 16:14:00 Document Registration [id number] 02/13/2012 10:17:00 Document Registration [id number] 02/01/2012 12:18:00 Document Registration [id number] 12/03/2011 08:47:00 Document Registration [id number] 05/31/2011 08:39:00 Document Registration [id number] 03/13/2011 08:40:00 Document Registration [id number] 02/05/2011 15:30:00 Document Registration [id number] 02/22/2010 10:36:00 Document Registration [id number] 12/09/2009 09:58:00 Document Registration
[2017-07-18] MEDS ORDERED: fentaNYL INJECTION 100 MCG/2 ML AMP IVP STA (14:35)
[2017-07-18] MEDS ORDERED: fentaNYL INJECTION 100 MCG/2 ML AMP ONE (14:36)
[2017-07-18] MEDS ORDERED: ONDANSETRON 4 MG/2 ML (SDV) Z0FRAN IV PRN (15:45)
[2017-07-18] MEDS ORDERED: CATHETER FLUSH 10 ML SYR IV PRN (15:45)
[2017-07-18 16:00] VITALS: BP 130/77
[2017-07-18] MEDS: fentaNYL INJECTION 100 MCG/2 ML AMP IV PRN (16:09)
--- NOTE | 2017-07-18 16:20 | History & Physicial ---
History of Present Illness History of Present Illness Reason for visit/HPI PT IS A 77 Y/O FEMALE WHO IS A PATIENT IN MY CLINIC. SHE PRESENTED TO THE HOSPITAL MULTIPLE TIMES OVER THE PAST WEEK DUE TO SEVERE RIB/SIDE PAIN. SHE WAS FOUND TO HAVE RIGHT SIDED RIB FRACTURE AND SHE WAS UNABLE TO KEEP DOWN ORAL MEDICATION DUE TO NAUSE AND EMESIS. SHE WAS THEREFORE ADMITTED TO THE HOSPITAL FOR IV PAIN MEDICATION, AND NAUSEA MEDICATION FOR SYMPTOM CONTROL AND FURTHER MONITORING WELL IV FLUIDS. Date of Admission Jul 18, 2017 at 13:33 Date Seen by Provider: Jul 18, 2017 Time Seen by Provider: 18:59 Attending Physician Jennifer Mancini MD Admitting Physician Jennifer Mancini MD Consult Allergies and Home Medications Allergies Coded Allergies: Penicillins (Unverified Allergy, Unknown, 07/18/17) erythromycin base (Unverified Allergy, Unknown, 07/18/17) Home Medications Aspirin 81 Mg Tabec, 81 MG PO DAILY, (Reported) Atorvastatin Calcium 80 Mg Tablet, 80 MG PO HS, (Reported) Hydrocodone/Acetaminophen 1 Each Tablet, 1 EACH PO Q6H PRN for PAIN-MODERATE, # 60 Prescribed by: JENNIFER MANCINI on 07/19/17 0942 Isosorbide Mononitrate 30 Mg Tab.sr.24h, 30 MG PO DAILY, (Reported) Metoprolol Succinate 50 Mg Tab.er.24h, 50 MG PO DAILY, (Reported) [place]-3 Fatty Acids/Fish Oil 1 Each Capsule, 1,000 MG PO TID, (Reported) Ondansetron 4 Mg Tab.rapdis, 4 MG PO Q6H PRN for NAUSEA/VOMITING-1ST LINE, #30 Prescribed by: JENNIFER MANCINI on 07/19/17 0941 [salanpas lidocaine] , 4 % TOP Q12H for 30 Days, #1 apply on in morning off at night - leave on for 12 hours Prescribed by: JENNIFER MANCINI on 07/19/17 0941 Past Xhuinyr-Cgunnd-Vbvnmp Hx Patient Social History Employed/Student: retired Alcohol Use: Denies Use Recreational Drug Use: No Smoking Status: Never a Smoker 2nd Hand Smoke Exposure: Yes Recent Foreign Travel: No Contact w/other who traveled: No Recent Hopitalizations: No Recent Infectious Disease Expo: No Immunizations Up To Date Tetanus Booster (TDap): More than 5yrs Seasonal Allergies Seasonal Allergies: No Surgeries Yes (HEART CATH) Eye Surgery Respiratory No Cardiovascular Yes (STENT) Heart Attack, Hypertension Neurological No Reproductive System Hx Reproductive Disorders: No Gastrointestinal No Musculoskeletal No Endocrine History of Endocrine Disorders: No HEENT HEENT Disorders: Cataract Loss of Vision: Denies Cancer No Psychosocial History of Psychiatric Problem: Yes Behavioral Health Disorders: Anxiety Integumentary History of Skin or Integumenta: No Blood Transfusions History of Blood Disorders: No Reviewed Nursing Assessment Reviewed/Agree w Nursing PMH: Yes Family Medical History Significant Family History: Heart Disease Family Hx: AIDS Arthritis 19 MOTHER, Onset:50's - 60 Deafness or hearing loss 19 FATHER, Onset:60 years & older 19 MOTHER, Onset:60 years & older Myocardial infarction 19 FATHER, Onset:60 years & older Visual disorder 19 FATHER, Onset:50's - 60 19 MOTHER, Onset:50's - 60 No Family History of: Abdominal aortic aneurysm [place]'s disease Alcoholism Alzheimer's disease Aphasia Asthma Cancer of mouth Cardiovascular disease Cataracts Colon cancer Completed stroke Congenital disease Congenital heart disease Coronary thrombosis Cystic fibrosis Dementia Diabetes mellitus Drug abuse Dysphasia Fibrocystic disease of breast Gastroenteritis Glaucoma Headache disorder Hypercholesterolemia Hypertension Infertility Kidney disease Neoplasm Osteoporosis Parkinson's disease Prostate cancer Psychosocial problem Respiratory disorder Seizure disorder Severe allergy Thyroid disease Tuberculosis Constitutional: No chills, No diaphoresis, No fever, weakness EENTM: No hoarseness, No mouth pain, No throat pain Respiratory: cough, No dyspnea on exertion, No short of breath, other (RIGHT SIDED RIB PAIN) Cardiovascular: chest pain (RIGHT CHEST WALL), No edema, No palpitations Gastrointestinal: No abdominal pain, nausea, vomiting Genitourinary: no symptoms reported Musculoskeletal: No back pain, No muscle stiffness Skin: no symptoms reported Psychiatric/Neurological: Denies Anxiety, Denies Depressed All Other Systems Reviewed Negative Unless Noted: Yes Physical Exam Vital Signs Vital Signs - First Documented 07/18/17 11:33 Temp 95.5 Pulse 80 Resp 22 B/P (MAP) 146/66 (92) Pulse Ox 97 O2 Delivery Room Air Capillary Refill : Less Than 3 Seconds General Appearance: No Apparent Distress, WD/WN Eyes: Bilateral Eye Normal Inspection, Bilateral Eye PERRL, Bilateral Eye EOMI HEENT: PERRL/EOMI, Pharynx Normal Neck: Full Range of Motion, Supple Respiratory: Lungs Clear, Decreased Breath Sounds (IN BASE ON RIGHT), Other ( TTP OVER RIGHT MID TO LOEWR RIBS LATERALLY) Cardiovascular: Regular Rate, Rhythm, Systolic Murmur Gastrointestinal: Normal Bowel Sounds, No Organomegaly, No Pulsatile Mass, Non Tender, Soft Extremity: Normal Capillary Refill, No Pedal Edema Neurologic/Psychiatric: Alert, Oriented x3, No Motor/Sensory Deficits, Normal Mood/Affect Skin: Warm/Dry Lymphatic: No Adenopathy Assessment/Plan Assessment and Plan 11TH RIB FRACTURE - RIGHT SIDED NAUSEA EMESIS HYPERTENSION 11TH RIB FRACTURE - RIGHT SIDED - IV PAIN CONTROL AND TOPICAL LIDODERM PATCH TONIGHT. CT OF ABDOMEN - IMPRESSION: No evidence of urinary tract stone or hydronephrosis. Incidental gallstones without gallbladder distention or wall thickening. Right 11th rib fracture posteromedially near the costovertebral junction, this appears to be acute or subacute, correlate with trauma to this area. A hiatal hernia is noted. There were no other significant findings. NAUSEA AND EMESIS - IV NAUSEA MEDICATION MONITOR SYMPTOMS. HYPERTENSION - RESUME HOME MEDICATIONS ANTICIPATE PT TO BE DISCHARGED TO HOME TOMORROW. Problems: Admission Diagnosis 11TH RIB FRACTURE - RIGHT SIDED NAUSEA EMESIS HYPERTENSION Clinical Quality Measures DVT/VTE Risk/Contraindication: Risk Factor Score Per Nursin RFS Level Per Nursing on Admit: 2=Moderate JENNIFER MANCINI MD Jul 18, 2017 16:20
[2017-07-18] MEDS ORDERED: INFLUENZA TRIvalent 2017-2018 0.5 ML/45 MCG SYR IM ONE (16:45)
[2017-07-18] MEDS ORDERED: PATIENT MAY USE OWN MEDS, ALL MC SCH (19:30)
[2017-07-18] MEDS: CATHETER FLUSH 10 ML SYR IV SCH (19:42)
[2017-07-18 19:47] VITALS: BP 120/56
[2017-07-18] MEDS: LIDOCAINE (LIDODERM) 5% PATCH TOP SCH (21:18)
[2017-07-18 23:05] VITALS: BP 100/51
[2017-07-19 03:11] VITALS: BP 115/61
[2017-07-19] MEDS: CATHETER FLUSH 10 ML SYR IV SCH ×2 (06:16→14:08)
[2017-07-19] MEDS: fentaNYL INJECTION 100 MCG/2 ML AMP IV PRN (07:28)
[2017-07-19 08:00] VITALS: BP 142/63
[2017-07-19] MEDS ORDERED: METO-370 PO (08:11)
[2017-07-19] MEDS: LIDOCAINE (LIDODERM) 5% PATCH TOP SCH (08:56)
[2017-07-19] MEDS ORDERED: ISOSORBIDE MONONITRATE 30 MG (IMDUR) TAB PO SCH (09:00)
[2017-07-19] MEDS ORDERED: [UNRECOGNIZED DRUG - OTHER] TOP (09:41)
[2017-07-19] MEDS ORDERED: ONDA4TAB8 PO (09:41)
[2017-07-19] MEDS ORDERED: HYDR-3812 PO (09:42)
--- NOTE | 2017-07-19 09:43 | Discharge Inst-Complex ---
PDI Med Rec & Follow Up Appt. New Medications: Hydrocodone/Acetaminophen (Hydrocodone-Acetamin 5-325 mg) 1 Each Tablet 1 EACH PO Q6H PRN for PAIN-MODERATE, #60 TAB Ondansetron (Zofran Odt) 4 Mg Tab.rapdis 4 MG PO Q6H PRN for NAUSEA/VOMITING-1ST LINE, #30 TAB [salanpas lidocaine] () 4 % TOP Q12H for 30 Days, #1 B apply on in morning off at night - leave on for 12 hours Continued Medications: Aspirin (Aspirin Ec 81 Mg) 81 Mg Tabec 81 MG PO DAILY Atorvastatin Calcium (Lipitor 80MG) 80 Mg Tablet 80 MG PO HS Isosorbide Mononitrate (Isosorbide Mononitrate 30 Mg) 30 Mg Tab.sr.24h 30 MG PO DAILY Metoprolol Succinate (Metoprolol Succinate) 50 Mg Tab.er.24h 50 MG PO DAILY, TAB [place]-3 Fatty Acids/Fish Oil (Fish Oil 1,000 Mg Softgel) 1 Each Capsule 1000 MG PO TID Activity, Diet and PDI Discharge Diet: Regular Diet Driving Instructions: No Driving for 24 Hours Symptoms to Reoprt to DrJhon: Appetite Changes, Fever Over 101 Degrees F, Pain/ Pressure in Chest, Nausea/Vomiting, Shortness of Breath For Problems or Questions: Contact Your Physician, Go to Emergency Room Infection Signs and Symptoms: Temperature Above 101 F JENNIFER RUIZ MD Jul 19, 2017 09:43
--- NOTE | 2017-07-19 09:44 | Discharge Summary ---
Diagnosis/Chief Complaint Date of Admission Jul 18, 2017 at 13:33 Date of Discharge Discharge Date: Jul 19, 2017 Discharge Time: 1600 Discharge Summary Discharge Physical Examination Allergies: Coded Allergies: Penicillins (Unverified Allergy, Unknown, 07/18/17) erythromycin base (Unverified Allergy, Unknown, 07/18/17) Vitals & I&Os Vital Signs Date Time Temp Pulse Resp B/P (MAP) Pulse Ox O2 Delivery O2 Flow Rate FiO2 07/19/17 08:00 96.9 69 20 142/63 (89) 99 Room Air Discharge Instructions to patient/family Please see electronic discharge instructions given to patient. Discharge Medications Reviewed and agree with Discharge Medication list on patient's Discharge Instruction sheet Clinical Quality Measures DVT/VTE Risk/Contraindication: Risk Factor Score Per Nursin RFS Level Per Nursing on Admit: 2=Moderate JENNIFER RUIZ MD Jul 19, 2017 09:44
[2017-07-19] MEDS ORDERED: HYDROcodone/APAP 5 MG/325 MG (LORTAB) TAB PO NR (14:00)
== END 2017-07-19 09:41 | disposition home or self-care (01) ==
LOC: EDUNIT# 11:26 → ER 11:27 → 4TH 13:33 → UNDOADMOB 13:33 → 4TH 15:10
PROVIDERS: ADMIT Family Medicine; ATTEND Family Medicine
DX: G89.11 Acute pain due to trauma (principal); S22.31XA Fracture of one rib, right side, initial encounter for closed fracture; I25.2 Old myocardial infarction; F41.9 Anxiety disorder, unspecified; Z82.49 Family history of ischemic heart disease and other diseases of the circulatory system; Z88.0 Allergy status to penicillin; Z88.1 Allergy status to other antibiotic agents; Z79.82 Long term (current) use of aspirin; Z79.52 Long term (current) use of systemic steroids; X58.XXXA Exposure to other specified factors, initial encounter
CPT/HCPCS: 96374; 96375; G0378

== ENCOUNTER → 2017-09-03 | Outpatient (CLI) | payer MEDICARE ==
[~2017-09-03] MED LIST changes: +HYDR-3812 PO; +METO-370 PO; +ONDA4TAB8 PO; +[UNRECOGNIZED DRUG - OTHER] TOP
[2017-09-03 14:09] LABS: ALANINE AMINOTRANSFERASE 16 U/L (0-55); ALBUMIN 4.4 GM/DL (3.2-4.5); ALKALINE PHOSPHATASE 78 U/L (40-136); BILIRUBIN,TOTAL 2.4 MG/DL (0.1-1.0); BUN/CREATININE RATIO 23; CALCIUM 9.3 MG/DL (8.5-10.1); CARBON DIOXIDE 28 MMOL/L (21-32); CHLORIDE 107 MMOL/L (98-107); CHOLESTEROL 142 MG/DL (< 200); CREATININE SERUM 0.66 MG/DL (0.60-1.30); GFR ESTIMATED > 60; GLUCOSE 102 MG/DL (70-105); HDL CHOLESTEROL 45 MG/DL (40-60); POTASSIUM 3.4 MMOL/L (3.6-5.0); SODIUM 142 MMOL/L (135-145); TOTAL PROTEIN 7.1 GM/DL (6.4-8.2); TRIGLYCERIDES 171 MG/DL (<150); VLDL CHOLESTEROL 34 MG/DL (5-40)
== END ==
LOC: LAB 13:33
PROVIDERS: ATTEND Internal Medicine Cardiovascular Disease
DX: I25.10 Atherosclerotic heart disease of native coronary artery without angina pectoris (principal); R09.89 Other specified symptoms and signs involving the circulatory and respiratory systems; K21.9 Gastro-esophageal reflux disease without esophagitis; I10 Essential (primary) hypertension; E78.5 Hyperlipidemia, unspecified
CPT/HCPCS: 36415; 80053; 80061

== ENCOUNTER 2017-12-24 11:32 | Emergency (ER) | payer MEDICARE ==
[~2017-12-24] VITALS: Ht 165.1 cm; Wt 68.0 kg
--- NOTE | 2017-12-24 12:27 | Diagnostic Imaging Report ---
INDICATION: Right shoulder pain. No known trauma. COMPARISON: None available. TECHNIQUE: 3 views of right shoulder were obtained. FINDINGS: No fracture or focal osseous lesion. Subacromial space is preserved. There is minimal osteophyte formation along the glenoid rim. Joint space narrowing and marginal osteophytes of the acromioclavicular joint are also noted. No abnormal soft tissue mineralizations. IMPRESSION: 1. 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 Dictated by: Dictated on workstation # [id number]
[2017-12-24] MEDS ORDERED: ACHD5005 PO (13:21)
--- NOTE | 2017-12-24 13:22 | ED Upper Extremity ---
General Chief Complaint: Upper Extremity Stated Complaint: RT ARM PAIN,CAN'T LIFT Nursing Triage Note: RIGHT UPPER ARM PAIN X1 MONTH. DENIES INJURY. Nursing Sepsis Screen: No Definite Risk History of Present Illness Date Seen by Provider: Dec 24, 2017 Time Seen by Provider: 12:30 Initial Comments Patient is a 77-year-old female who presents to the emergency room with complaints of right upper arm pain and right shoulder pain for one month. She reports not being able to recall an injury but a gradual onset of pain over the course of this month. Onset: other Severity: mild Pain/Injury Location: right shoulder, right arm Method of Injury: unknown Modifying Factors: Improves With Immobilization; Worse With Movement Allergies and Home Medications Allergies Coded Allergies: Penicillins (Unverified Allergy, Unknown, 07/18/17) erythromycin base (Unverified Allergy, Unknown, 07/18/17) Home Medications Aspirin 81 Mg Tabec, 81 MG PO DAILY, (Reported) Atorvastatin Calcium 80 Mg Tablet, 80 MG PO HS, (Reported) Hydrocodone Bit/Acetaminophen 1 Tab Tab, 1 EACH PO Q6H PRN for PAIN Prescribed by: STEPHANIE DUMONT on 12/24/17 1321 Hydrocodone/Acetaminophen 1 Each Tablet, 1 EACH PO Q6H PRN for PAIN-MODERATE Prescribed by: JENNIFER RUIZ on 07/19/17 0942 Isosorbide Mononitrate 30 Mg Tab.sr.24h, 30 MG PO DAILY, (Reported) Metoprolol Succinate 50 Mg Tab.er.24h, 50 MG PO DAILY, (Reported) [place]-3 Fatty Acids/Fish Oil 1 Each Capsule, 1,000 MG PO TID, (Reported) Ondansetron 4 Mg Tab.rapdis, 4 MG PO Q6H PRN for NAUSEA/VOMITING-1ST LINE Prescribed by: JENNIFER RUIZ on 07/19/17 0941 [salanpas lidocaine] , 4 % TOP Q12H apply on in morning off at night - leave on for 12 hours Prescribed by: JENNIFER RUIZ on 07/19/17 0941 Patient Home Medication List Home Medication List Reviewed: Yes Constitutional: see HPI; No chills, No fever Musculoskeletal: see HPI, joint pain (right shoulder), muscle pain (right), muscle stiffness (right arm) Past Hmzenez-Yegiyy-Ouzsvh Hx Past Med/Social Hx: Reviewed Nursing Past Med/Soc Hx Patient Social History Alcohol Use: Denies Use Recreational Drug Use: No Smoking Status: Never a Smoker 2nd Hand Smoke Exposure: Yes Recent Foreign Travel: No Contact w/Someone Who Travel: No Recent Infectious Disease Expo: No Recent Hopitalizations: No Immunizations Up To Date Tetanus Booster (TDap): More than 5yrs Seasonal Allergies Seasonal Allergies: No Past Medical History Surgeries: Yes (HEART CATH) Eye Surgery Respiratory: No Cardiac: Yes (STENT) Heart Attack, Hypertension Neurological: No Reproductive Disorders: No Gastrointestinal: No Musculoskeletal: No Endocrine: No Cataract Loss of Vision: Denies Cancer: No Psychosocial: Yes Anxiety Integumentary: No Blood Disorders: No Family Medical History Reviewed Nursing Family Hx AIDS Arthritis 19 MOTHER, Onset:50's - 60 Deafness or hearing loss 19 FATHER, Onset:60 years & older 19 MOTHER, Onset:60 years & older Myocardial infarction 19 FATHER, Onset:60 years & older Visual disorder 19 FATHER, Onset:50's - 60 19 MOTHER, Onset:50's - 60 No Family History of: Abdominal aortic aneurysm [place]'s disease Alcoholism Alzheimer's disease Aphasia Asthma Cancer of mouth Cardiovascular disease Cataracts Colon cancer Completed stroke Congenital disease Congenital heart disease Coronary thrombosis Cystic fibrosis Dementia Diabetes mellitus Drug abuse Dysphasia Fibrocystic disease of breast Gastroenteritis Glaucoma Headache disorder Hypercholesterolemia Hypertension Infertility Kidney disease Neoplasm Osteoporosis Parkinson's disease Prostate cancer Psychosocial problem Respiratory disorder Seizure disorder Severe allergy Thyroid disease Tuberculosis Heart Disease Physical Exam Vital Signs Vital Signs - First Documented 12/24/17 11:35 Temp 98.0 Pulse 82 Resp 16 B/P (MAP) 140/102 (115) Pulse Ox 98 O2 Delivery Room Air Capillary Refill : Less Than 3 Seconds Height, Weight, BMI Height: 5'5.00" Weight: 150lbs. 0.0oz. 68.265092zh; 25.6 BMI Method:Stated General Appearance: WD/WN, no apparent distress Cardiovascular: regular rate, rhythm, no edema, no gallop, no JVD, no murmur Respiratory: chest non-tender, lungs clear, normal breath sounds, no respiratory distress, no accessory muscle use Shoulder: normal inspection, non-tender, no evidence of injury, limited ROM ( patient has full range of motion but increased pain with range of motion.) Neurologic/Tendon: normal sensation, normal motor functions, normal tendon functions, responds to pain Neurologic/Psychiatric: alert, normal mood/affect, oriented x 3 Progress/Results/Core Measures Results/Orders Vital Signs/I&O Blood Pressure Mean: 115 Progress Progress Note : Progress Note I have seen and evaluated the patient. I have informed her of her x-ray findings of arthritic changes. She agrees with close follow-up with her family care provider, return precautions, and plans for discharge. Patient was given hydrocodone to use sparingly as needed for pain unrelieved by Tylenol and ibuprofen. Departure Impression Primary Impression: Right shoulder pain Disposition: HOME, SELF-CARE Condition: Stable/Unchanged Departure-Patient Inst. Decision time for Depature: 13:20 Referrals: JENNIFER RUIZ MD (PCP/Family) Primary Care Physician Patient Instructions: How to Use a Shoulder Sling, Shoulder Pain (DC) Add. Discharge Instructions: Take medication as directed. Follow-up with Dr. RUIZ within 1 week for recheck. Return back to the emergency room for any worsening symptoms or any other concerns as needed. Wear the sling as needed for comfort. All discharge instructions reviewed with patient and/or family. Voiced understanding. Scripts Hydrocodone Bit/Acetaminophen (Hydrocodone/Acetaminophen 5/325mg Tablet) 1 Tab Tab 1 EACH PO Q6H PRN for PAIN, #10 TAB Prov: STEPHANIE DUMONT 12/24/17 STEPHANIE DUMONT Dec 24, 2017 13:22
[2017-12-24 13:31] VITALS: BP 136/98
== END 2017-12-24 13:25 | disposition home or self-care (01) ==
LOC: EDUNIT# 11:32 → ER 11:33
DX: M25.511 Pain in right shoulder (principal); I10 Essential (primary) hypertension; I25.2 Old myocardial infarction; F41.9 Anxiety disorder, unspecified; Z88.0 Allergy status to penicillin; Z88.1 Allergy status to other antibiotic agents; Z79.82 Long term (current) use of aspirin; Z77.22 Contact with and (suspected) exposure to environmental tobacco smoke (acute) (chronic)
CPT/HCPCS: 73030

== ENCOUNTER → 2018-08-28 | Outpatient (CLI) | payer MEDICARE ==
[~2018-08-28] MED LIST changes: +ACHD5005 PO
== END ==
LOC: CARD 13:11
PROVIDERS: ATTEND Physician Assistant
DX: I25.10 Atherosclerotic heart disease of native coronary artery without angina pectoris (principal); R07.9 Chest pain, unspecified; I10 Essential (primary) hypertension; K21.9 Gastro-esophageal reflux disease without esophagitis; E78.5 Hyperlipidemia, unspecified
CPT/HCPCS: 93306

== ENCOUNTER → 2018-09-01 | Outpatient (CLI) | payer MEDICARE ==
[~2018-09-01] VITALS: Ht 165.1 cm; Wt 69.9 kg
[~2018-09-01] MED LIST changes: +CATHETER FLUSH 10 ML SYR IV PRN; +REGADENOSON 0.4 MG/5 ML SYR (LEXISCAN) IV ONE
[2018-09-01 09:04] VITALS: BP 166/102
--- NOTE | 2018-09-02 08:51 | STRESS TEST ---
DATE OF SERVICE: 09/01/2018 LEXISCAN MYOVIEW STRESS TEST REPORT REFERRING PHYSICIAN: Dr. Mancini. Baseline heart rate is 74, baseline blood pressure 194/100. Baseline EKG is sinus rhythm with no ischemic changes. In summary, the patient was injected with 10.75 mCi of technetium-99 Myoview and the resting images were obtained. Then, the patient received mg of Lexiscan followed by 31.3 mCi of technetium-99 Myoview. Throughout the test, there were no EKG changes. The resting and stress images were reviewed and compared in the short axis, horizontal long axis, and vertical long axis views. Review of the images showed good radiotracer uptake with no significant ischemia or infarction. SSS is 3, SDS 1, TID value 1.08. On the gated images, the left ventricle appeared to be in normal size with normal contractility. Calculated ejection fraction 84%. CONCLUSION: 1. The patient tolerated Lexiscan well. 2. No significant ischemia or infarction on SPECT images. 3. Normal left ventricular size with normal contractility. Calculated ejection fraction 84%. Job ID: [id number] DocumentID: [id number] Dictated Date: 09/02/2018 08:02:14 Tick Eradicator Date: 09/02/2018 08:50:12 Dictated By: AR MAGALLANES MD
== END ==
LOC: CARD 07:10
PROVIDERS: ATTEND Physician Assistant
DX: R07.89 Other chest pain (principal); I25.10 Atherosclerotic heart disease of native coronary artery without angina pectoris; I10 Essential (primary) hypertension; E78.5 Hyperlipidemia, unspecified; K21.9 Gastro-esophageal reflux disease without esophagitis
CPT/HCPCS: 78452; 93017

== ENCOUNTER → 2020-08-12 | Outpatient (CLI) | payer MEDICARE ==
[~2020-08-12] MED LIST changes: -CATHETER FLUSH 10 ML SYR IV PRN; -HYDR-3812 PO; -METO-370 PO; +METO50TA7 PO; -OXYC-471 PO; +OXYC1TAB11 PO; -REGADENOSON 0.4 MG/5 ML SYR (LEXISCAN) IV ONE; -TRAM50TA2 PO; +TRM50T PO
[2020-08-12 11:51] LABS: ALANINE AMINOTRANSFERASE 22 U/L (0-55); ALBUMIN 4.5 GM/DL (3.2-4.5); ALKALINE PHOSPHATASE 77 U/L (40-136); BILIRUBIN,TOTAL 1.7 MG/DL (0.1-1.0); BUN/CREATININE RATIO 18; CALCIUM 9.4 MG/DL (8.5-10.1); CARBON DIOXIDE 25 MMOL/L (21-32); CHLORIDE 104 MMOL/L (98-107); CHOLESTEROL 193 MG/DL (< 200); CREATININE SERUM 0.79 MG/DL (0.60-1.30); GFR ESTIMATED > 60; GLUCOSE 132 MG/DL (70-105); HDL CHOLESTEROL 53 MG/DL (40-60); POTASSIUM 3.6 MMOL/L (3.6-5.0); SODIUM 141 MMOL/L (135-145); TOTAL PROTEIN 7.2 GM/DL (6.4-8.2); TRIGLYCERIDES 189 MG/DL (<150); VLDL CHOLESTEROL 38 MG/DL (5-40)
== END ==
LOC: LAB 11:07
PROVIDERS: ATTEND Internal Medicine Cardiovascular Disease
DX: E78.2 Mixed hyperlipidemia (principal)
CPT/HCPCS: 36415; 80053; 80061